=== PATIENT | male | born 1960 | race Caucasian/White ===

== ENCOUNTER 2020-03-21 06:56 | Outpatient (REF) | payer OTHER, SELFPAY | END 2020-03-21 06:57 | disposition home or self-care (01) | LOC: HO.LAB 06:56 | PROVIDERS: Visit Provider Internal Medicine | DX: Z20.828 Contact with and (suspected) exposure to other viral communicable diseases (principal) | CPT/HCPCS: C9803; U0003 ==

== ENCOUNTER 2020-07-11 07:03 | Day surgery (SDC) | payer OTHER, SELFPAY ==
[2020-06-02 13:46] VITALS: BMI 30.4
--- NOTE | 2020-07-08 08:53 | HO.ANESPROP2 ---
Documented by User: Annette Chinchilla 07/08/20 08:54 HPI - Anesthesia Eval Consult details Narrative: 60yo M for Colonoscopy [facility] Past Medical History Medical History (Updated 06/02/20 @ 13:43 by Iveth Palm) Elevated cholesterol History of CVA (cerebrovascular accident) HTN (hypertension) Surgical History Surgical History (Updated 06/02/20 @ 13:23 by Iveth Palm) Hx of colonoscopy Hx of wisdom tooth extraction Social History Social History Smoking Status: Never smoker Use of substances other than those prescribed or required for medical reasons: No Advance Directives: No Advance Directives Information Provided: No Meds Allergies Allergy/AdvReac Type Severity Reaction Status Date / Time No Known Allergies Allergy Verified 06/02/20 13:43 Home Medications Medication Instructions Recorded Confirmed Last Taken Type aspirin [Aspir-81] 81 mg PO DAILY 06/02/20 06/02/20 Unknown History atorvastatin 1 tab PO DAILY 06/02/20 06/02/20 Unknown History losartan 1 tab PO DAILY 06/02/20 06/02/20 Unknown History Exam Exam Date and Time: July 08, 2020 0853 Height,Weight and Vital Signs: Height 5 ft 8 in Weight 90.718 kg Assessment and Plan Assessment Anesthesia Assessment: Chart Reviewed Documented by User: Terra Gomes 07/11/20 07:27 [facility] Past Medical History Medical History (Updated 06/02/20 @ 13:43 by Iveth Palm) Elevated cholesterol History of CVA (cerebrovascular accident) HTN (hypertension) Surgical History Surgical History (Updated 06/02/20 @ 13:23 by Iveth Palm) Hx of colonoscopy Hx of wisdom tooth extraction Social History Social History Smoking Status: Never smoker Use of substances other than those prescribed or required for medical reasons: No Advance Directives: No Advance Directives Information Provided: No Meds Allergies Allergy/AdvReac Type Severity Reaction Status Date / Time No Known Allergies Allergy Verified 06/02/20 13:43 Home Medications Medication Instructions Recorded Confirmed Last Taken Type aspirin [Aspir-81] 81 mg PO DAILY 06/02/20 06/02/20 Unknown History atorvastatin 1 tab PO DAILY 06/02/20 06/02/20 Unknown History losartan 1 tab PO DAILY 06/02/20 06/02/20 Unknown History Exam Airway Mallampati Class: II (Cap top right) TM Dist: >3cm Neck ROM: Full Heart: RrR Lungs: CTa Assessment and Plan Assessment Anesthesia Assessment: Anesthesia Plan Discussed and Chart Reviewed Final Anesthetic Review NPO: Yes ASA Class: II Final Preanesthetic Review: No Changes in Pt Med Stat and Consent Obtained/Reviewed Patient Risk: Intermediate Procedure Risk: Intermediate Anesthetic Plan Anesthetic Plan: MAC: Disposition: Standard PACU
[2020-07-11] MEDS: Lactated Ringers 1,000 ML 100 ML IVCONT (07:43)
[2020-07-11 07:45] VITALS: BP 131/80; PULSE 54; RESP 16; TEMP 36.1; O2SAT 97
[2020-07-11 09:15] VITALS: BP 137/80; PULSE 55; RESP 18; TEMP 36.4; O2SAT 96
--- NOTE | 2020-07-11 09:22 | PM.OP ---
Brief Operative Note Date of Service: 07/11/20 Pre-op diagnosis: Screening Post-op diagnosis: other (Colon polyp) Procedure: Colonoscopy to the cecum and TI with snare polypectomy, placement of Resolution clips x 2, and submucosal ink marking x 2 Surgeon: Matthew West Anesthesia: MAC Estimated blood loss (mL): 0 Pathology: other (A. Colon polyp at 30cm) Condition: stable Disposition: PACU
--- NOTE | 2020-07-11 09:38 | OP_ITS ---
SURGEON: Matthew West MD INDICATIONS: The patient presents for evaluation of colorectal cancer screening. Full consent has been obtained from him for this, including risks of bleeding and perforation. PREOPERATIVE DIAGNOSIS: Colorectal cancer screening. POSTOPERATIVE DIAGNOSIS: PROCEDURE PERFORMED: ESTIMATED BLOOD LOSS: COMPLICATIONS: ANESTHESIA: Monitored anesthesia care. ASSISTANTS: SPECIMENS: POSTOPERATIVE DIAGNOSES: Colorectal cancer screening, colon polyp, diverticulosis and internal hemorrhoids. DESCRIPTION OF PROCEDURE: The patient was placed in the left lateral decubitus position. The digital rectal exam revealed no abnormalities. The Olympus video pediatric colonoscope was entered into the rectum and advanced easily to the cecum. Once in the cecum, I did identify normal-appearing cecal pouch with appendiceal orifice and a normal-appearing ileocecal valve. The terminal ileum was cannulated and appeared normal. The scope was withdrawn back in the colon. The entire cecum and ileocecal valve appeared normal. The scope was slowly withdrawn assessing all mucosal surfaces carefully. Preparation was excellent. At 30 cm, was an approximately 1.5 cm somewhat inflammatory and ulcerated polyp on a relatively long thick stalk. I initially placed 2 resolution clips toward the base of the stalk to help with hemostasis. There was good change of color of the polyp to a dusky color. I then used the hot snare to remove the polyp just above the clip. There was no sign of any bleeding. The polyp itself was retrieved with a retrieval net and taken out of the patient. The scope was readvanced back to the polypectomy site. Both clips were well deployed and there was good hemostasis. There was no sign of any residual polyp nor bleeding. Given the gross appearance of the polyp, I placed a submucosal ink claudette just proximal and just distal to the polypectomy site. Good markings were noted. No other polyps were seen in the colon. There was no colitis nor angiodysplasia. There was a mild amount of sigmoid diverticulosis. In the rectum, scope was retroflexed visualizing small internal hemorrhoids, but no other pathology. The rectal mucosa appeared normal. The scope was straightened out and withdrawn from the patient. He tolerated the procedure well and was returned to the recovery area in stable condition. IMPRESSION: 1. Colon polyp, status post snare polypectomy with placement of 2 resolution clips on the polypectomy site and marking with submucosal ink. 2. Diverticulosis. 3. Internal hemorrhoids. PLAN: The results of the pathology will be checked. If this is only adenomatous, I would then recommend a repeat colonoscopy in 3 years. If there is any worrisome signs such as high-grade dysplasia or certainly carcinoma, we may need to proceed earlier or consider surgical referral depending upon the final pathology report. He was advised to not use any aspirin for 3 more days. This has been discussed with his . PROCEDURES PERFORMED: Colonoscopy to cecum and terminal ileum with snare polypectomy, placement of 2 resolution clips, and marking with submucosal ink. MD MARIPOSA Barber/ANDREINA / [id number]
[2020-07-11 09:42] VITALS: BP 131/95; PULSE 56; RESP 18; TEMP 36.2; O2SAT 97
== END 2020-07-11 09:48 | disposition home or self-care (01) ==
PROVIDERS: PCP Physician Assistant; Visit Provider Internal Medicine
PROC: 0DJD8ZZ Inspection of Lower Intestinal Tract, Via Natural or Artificial Opening Endoscopic (ICD-10-PCS; CPT 45378; principal; 2020-07-11 08:10)
DX: Z12.11 Encounter for screening for malignant neoplasm of colon (principal); K51.40 Inflammatory polyps of colon without complications; K57.30 Diverticulosis of large intestine without perforation or abscess without bleeding; K64.8 Other hemorrhoids; I10 Essential (primary) hypertension; I62.9 Nontraumatic intracranial hemorrhage, unspecified; G83.24 Monoplegia of upper limb affecting left nondominant side; Z79.899 Other long term (current) drug therapy; Z79.82 Long term (current) use of aspirin
CPT/HCPCS: 45385; 45381; 88305

== ENCOUNTER 2024-01-15 12:27 | Outpatient (AMB) | payer OTHER, SELFPAY ==
--- NOTE | 2024-01-15 12:32 | MHC.PC.OV ---
Vital Signs 01/15/24 12:34 01/15/24 13:12 Height 5 ft 7.5 in Weight 212 lb BMI 32.7 BP 146/90 H 140/98 H Blood Pressure Location Rt brachial Rt brachial Position Sitting Sitting Pulse 54 Pulse Source Pulse Oximeter Pulse Oximetry (%) 96 Oxygen Delivery Method Room Air Intake Visit Reasons: PE Intake Note: Pt is here today for his PE Allergies No Known Allergies Allergy (Verified 01/15/24 12:33) Medication List - Last Reconciled 01/15/24 by MARY Pope No Known Home Meds Tobacco use date assessed: 01/15/24 Dental Screening Dental Screen Date: 01/15/24 Did you have a dental visit in the last 12 months?: No Did you have a dental problem in the last 6 months where you did not have access to dental care?: No Was dental information given to patient?: No HPI PE HPI Details New pt is here for a PE. Will order labs. Due for colon screen, will refer to GI. Due for PSA, will order. Denies dribbling with urination, weak stream, and frequent nocturia. Pt follows up with urology. Pt reports hearing loss. Will refer to speech and hearing. Pt's blood pressure is elevated today. Will start losartan 25mg. Will have pt monitor his BP at home and send values via portal. 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 Denies chest pain, shortness of breath, headache, dizziness, and blurred vision. Encouraged pt to restart daily aspirin. Pt is fair skinned with faint macular lesions throughout his face. Will refer to derm. [facility] Medical History (Updated 01/15/24 @ 13:17 by MARY Pope) History of CVA (cerebrovascular accident) Elevated cholesterol HTN (hypertension) Surgical History Hx of wisdom tooth extraction Hx of colonoscopy Social History Housing: House Patient Tobacco Use Status: Former Tobacco user Tobacco use type: Cigar e-Cigarette/Vaping Use: Never Used service: No Current occupational status: employed Cognitive needs: No Hearing needs: No Vision needs: Yes Questionnaire PHQ-9 Over the last 2 weeks, how often have you been bothered by any of the following problems? 1. Little interest or pleasure in doing things: not at all 2. Feeling down, depressed, or hopeless: not at all 3. Trouble falling or staying asleep, or sleeping too much: several days 4. Feeling tired or having little energy: not at all 5. Poor appetite or overeating: not at all 6. Feeling bad about yourself - or that you are a failure or have let yourself or your family down: not at all 7. Trouble concentrating on things, such as reading the newspaper or watching television: not at all 8. Moving or speaking so slowly that other people could have noticed. Or the opposite - being so fidgety or restless that you have been moving around a lot more than usual: not at all 9. Thoughts that you would be better off or of hurting yourself in some way: not at all Total score: 1 Depression Screening Interpretation: Negative Depression Screening Done: Yes 03626 - PHQ-9 Billing: Yes Source: Developed by Drs. Matthew Heaton, Jessica Carolina, Tj Berkowitz and colleagues, with an educational kevin from [employer]. Thrive Questionnaire Date Thrive assessed: 01/15/24 I am a: Patient What is your living situation today?: I have a steady place to live Within the past 12 months, did the food you bought not last and you didn't have the money to get more?: Never true Within the past 12 months, did you worry whether your food would run out before you got money to buy more?: Never true Do you have trouble paying for medicines?: No Do you have trouble getting transportation to medical appointments?: No Do you have trouble paying your heating and electricity bill?: No Do you have trouble taking care of your child, family member or friend?: No Do you have trouble with day-to-day activities such as bathing, preparing meals, shopping, managing finances, etc.?: No Are you interested in more education?: Yes Please select the resources that you would like help with: None Currently or been in a relationship where the following occur: No concerns reported THRIVE Score: 0 AUDIT C Alcohol Use Questionnaire (AUDIT-C) 1. How often do you have a drink containing alcohol?: 2-4 times a month 2. How many drinks containing alcohol do you have on a typical day when you are drinking?: 1 or 2 3. How often do you have six or more drinks on one occasion?: Never Total Score: 2 MARCUS-7 AMB Questionnaire MARCUS-7 Date MARCUS - 7 assessed: 01/15/24 Feeling nervous, anxious, or on edge: 0 = Not at all Not being able to stop or control worryin = Not at all Worrying too much about different things: 0 = Not at all Trouble relaxin = Not at all Being so restless that it is hard to sit still: 0 = Not at all Becoming easily annoyed or irritable: 0 = Not at all Feeling afraid as if something awful might happen: 0 = Not at all Total MARCUS-7 score (0-4 normal; 5-9 mild; 10-14 moderate; 15-21 severe): 0 Source: Developed by Drs. Matthew Heaton, Jessica Carolina, Tj Berkowitz and colleagues, with an educational kevin from [employer]. MARCUS-7 Assessment Billing MARCUS-7 Assessment Tool: MARCUS-7 Assessment 37244 Review of Systems Const Denies chills and Denies fever(s) Eyes Denies blurry vision ENT Denies vertigo, Denies dizziness and Denies sore throat Card Denies chest pain at rest, Denies chest pain with activity, Denies diaphoresis, Denies dyspnea and Denies dyspnea on exertion Resp Denies cough, Denies dyspnea, Denies dyspnea on exertion and Denies wheezing GI Denies abdominal pain, Denies melena, Denies hematochezia, Denies constipation, Denies diarrhea and Denies loose stools Denies hematuria Musc Denies numbness and Denies tingling Skin/Breast Denies lesions Neuro Denies vertigo, Denies dizziness, Denies numbness and Denies tingling Psych Denies anxiety, Denies depression, Denies homicidal ideation, Denies suicidal ideation and Denies other (substance abuse) Aller/Immun Denies wheezing Physical exam (Primary Care) Vital Signs: Last Vital Signs Pulse 54 01/15/24 12:34 BP 140/98 H 01/15/24 13:12 Pulse Ox 96 01/15/24 12:34 Oxygen Delivery Method Room Air 01/15/24 12:34 BMI result Body Mass Index 32.7 Tobacco/Smoking Status: Tobacco use Status Tobacco use date assessed 01/15/24 01/15/24 12:38 Patient Tobacco Use Status Former Tobacco user 01/15/24 12:38 Tobacco use type Cigar 01/15/24 12:38 e-Cigarette/Vaping Use Never Used 01/15/24 12:38 PHQ-9: PHQ-9 Score PHQ-9: Total score 1 01/15/24 13:12 Depression Screening Interpretation: Negative Thrive Assessment: Date of Thrive Assessment Date Thrive assessed 01/15/24 01/15/24 12:38 Currently or been in a relationship where the following occur: No concerns reported Const General: cooperative Nutritional Appearance: well nourished Orientation/consciousness: patient oriented x3 HENMT Head: Yes normal to inspection, Yes normocephalic and Yes atraumatic Ears: TM's normal bilaterally Eyes General: appearance normal, both eyes and all related structures Alignment and Position: alignment normal and position normal Neck Neck: Yes normal visual inspection, Yes no lymphadenopathy and Yes supple Resp Effort & Inspection: normal respiratory effort Auscultation: clear to auscultation bilaterally Cardio Rate: regular rate Rhythm: regular rhythm Heart sounds: S1 normal heart sound present, S2 normal heart sound present and no murmurs GI Palpation (GI): Soft to palpation and nontender Auscultation: normal bowel sounds Male General Exam: Yes normal external exam Penis: normal penis Scrotum: scrotum normal, testes descended bilaterally and no inguinal hernias Testes: no testicular mass Skin Other: fair skinned, faint macular lesions throughout face Rashes: no rashes Neuro General: patient oriented x3, moves all extremities, no focal motor deficits and deep tendon reflexes 2+ bilaterally Romberg Test: Negative Psych Appearance: grossly normal Mental Status: mental status grossly normal Speech and movement: Normal speech and movement present Affect: normal affect Attitude: cooperative Thought process: Normal thought process present Thought content: Normal thought content present Insight: Good insight present (Psych) Judgement: Good judgement present (Psych) Coding Level of Care Code New Pt Prev Care 40-64y(43373) Diagnoses Physical exam Z00.00 Screening for prostate cancer Z12.5 Screening for colon cancer Z12.11 Loss of hearing H91.90 Skin lesions L98.9 HTN (hypertension) I10 Additional Codes MARCUS-7 Assessment Billing - MARCUS-7 Assessment Tool: MARCUS-7 Assessment 64835 ([id number]) Assessment & Plan Assessment & Plan (1) Physical exam: Code(s): Z00.00 - Encounter for general adult medical examination without abnormal findings Category: Medical Plan: labs entered (2) Screening for prostate cancer: Code(s): Z12.5 - Encounter for screening for malignant neoplasm of prostate Category: Medical Plan: PSA ordered (3) Screening for colon cancer: Code(s): Z12.11 - Encounter for screening for malignant neoplasm of colon Category: Medical Plan: referred to GI (4) Loss of hearing: Code(s): H91.90 - Unspecified hearing loss, unspecified ear Category: Medical Plan: Referred to speech and hearing (5) Skin lesions: Code(s): L98.9 - Disorder of the skin and subcutaneous tissue, unspecified Category: Medical Plan: Referred to derm (6) HTN (hypertension): Code(s): I10 - Essential (primary) hypertension Category: Medical Plan: lab orders entered, starting losartan, pt will monitor his BP at home and send readings via portal Plan The patient agreed to the use of a medical coding specialist for this encounter. Scribed for XIMENA Mckeon-BC by Inez Shah medical coding specialist, on 01/15/2024 at 12:45 EST. Orders: Orders UA CC w/rflx Micro + Cult Today Z00.00 - Encounter for general adult medical examination without abnormal findings Lipid Panel Today Z00.00 - Encounter for general adult medical examination without abnormal findings Prostate Specific Antigen Scr Today Z12.5 - Encounter for screening for malignant neoplasm of prostate Complete Blood Count Auto Diff Today Z00.00 - Encounter for general adult medical examination without abnormal findings Comprehensive [place]. Panel Fast Today Z00.00 - Encounter for general adult medical examination without abnormal findings TSH reflex Free T4 Today Z00.00 - Encounter for general adult medical examination without abnormal findings Referrals Speech and Hearing Referral H91.90 - Unspecified hearing loss, unspecified ear, Z00.00 - Encounter for general adult medical examination without abnormal findings Dermatology Referral L98.9 - Disorder of the skin and subcutaneous tissue, unspecified Gastroenterology Referral Z12.11 - Encounter for screening for malignant neoplasm of colon Medications: New losartan 25 mg PO DAILY 30 tabs 2RF 30 days
[2024-01-15 12:34] VITALS: BP 146/90; PULSE 54; O2SAT 96; BMI 32.7
[2024-01-15 13:12] VITALS: BP 140/98
== END 2024-01-15 13:18 | disposition home or self-care (01) ==
PROVIDERS: PCP Physician Assistant; Visit Provider Nurse Practitioner Family
DX: Z00.00 Encounter for general adult medical examination without abnormal findings (principal); Z12.5 Encounter for screening for malignant neoplasm of prostate; Z12.11 Encounter for screening for malignant neoplasm of colon; H91.90 Unspecified hearing loss, unspecified ear; L98.9 Disorder of the skin and subcutaneous tissue, unspecified; I10 Essential (primary) hypertension

== ENCOUNTER → 2024-01-15 12:27 | Outpatient (BNVA) | payer OTHER, SELFPAY | PROVIDERS: PCP Physician Assistant; Visit Provider Nurse Practitioner Family | DX: Z00.01 Encounter for general adult medical examination with abnormal findings (principal); H91.90 Unspecified hearing loss, unspecified ear; L98.9 Disorder of the skin and subcutaneous tissue, unspecified; I10 Essential (primary) hypertension | CPT/HCPCS: 96127 ==

== ENCOUNTER 2024-01-28 07:22 | Outpatient (REF) | payer OTHER, SELFPAY ==
[2024-01-28 07:47] LABS: MANUAL DIFF FLAG NO
[2024-01-28 08:21] LABS: Basophils Absolute Auto 0.1 X10*3/uL (0.0-0.2); Eosinophils Absolute Auto 0.5 X10*3/uL (0.0-0.4); Eosinophils Percent Auto 8.2 % (0-4); Hematocrit 43.8 % (42.0-52.0); Hemoglobin 14.8 g/dl (14.0-18.0); Imm Gran Abs Auto 0.02 X10*3/uL (0.00-0.03); Imm Gran Pct Auto 0.3 % (0.0-0.4); Lymphocytes Absolute Auto 2.1 X10*3/uL (1.2-4.9); Lymphocytes Percent Auto 33.8 % (20-40); Mean Corpuscular HGB Conc 33.8 g/dl (31.0-36.0); Mean Corpuscular Hemoglobin 29.8 pg (27.0-33.0); Mean Corpuscular Volume 88.1 fL (80.0-98.0); Mean Platelet Volume 9.2 fL (9.4-12.4); Monocytes Absolute Auto 0.6 X10*3/uL (0.1-1.2); Monocytes Percent Auto 9.9 % (2-11); Neutrophils Absolute Auto 2.9 x10*3/uL (2.0-8.3); Neutrophils Percent Auto 46.8 % (45-73); Platelet Count 233 X10*3/uL (160-400); Red Blood Count 4.97 X10*6/uL (4.60-5.80); Red Cell Distribution Width 12.9 % (11.0-16.0); White Blood Count 6.1 X10*3/uL (4.8-10.8)
[2024-01-28 08:37] LABS: Appearance Urine Clear; Color Urine Dark Yellow; Glucose Urine UA Negative (Negative); Leukocyte Esterase Urine Trace (Negative); Nitrite Urine Negative (Negative); UMIC TRIGGER UACC YES; Urine Blood Negative (Negative); Urine Ketones Negative (Negative); Urine Protein Negative (Neg-Trace)
[2024-01-28 08:47] LABS: Bacteria Urine None Seen (None Seen); Hyaline Casts Urine 0-2 /LPF (0-2); RBC Urine 0-2 /HPF (0-2); Squamous Epithelial Cell Urine 0-2 /HPF (0-2); WBC Urine 0-5 /HPF (0-5)
[2024-01-28 09:08] LABS: Alanine Aminotransferase 86 U/L (0-40); Albumin Level 4.7 g/dL (3.5-5.0); Alkaline Phosphatase 78 U/L (39-117); Anion Gap 11 (12-20); Aspartate Amino Transferase 58 U/L (5-37); Bilirubin Total 0.6 mg/dL (0.0-1.0); Blood Urea Nitrogen 14 mg/dL (9-16); Calcium 10.2 mg/dL (8.4-10.2); Carbon Dioxide 29 mmol/L (22-29); Chloride 103 mmol/L (96-108); Cholesterol 283 mg/dL (<200); Estimated Glomerular Filt Rate > 60; Glucose Fasting 132 mg/dL (60-99); HDL Cholesterol 50 mg/dL (>40); LDL Cholesterol Calculated 173 mg/dL (<100); Sodium 139 mmol/L (135-145); Total Protein 7.4 g/dL (6.5-8.0); Triglycerides 303 mg/dL (<150)
[2024-01-28 09:27] LABS: TSH reflex Free T4 2.87 uIU/mL (0.32-4.0)
[2024-01-28 09:31] LABS: Prostate Specific Antigen Scr 6.27 ng/mL (<0.05-4.0)
== END 2024-01-28 07:23 | disposition home or self-care (01) ==
LOC: HO.LAB 07:22
PROVIDERS: PCP Nurse Practitioner Family; Visit Provider Nurse Practitioner Family
DX: Z00.00 Encounter for general adult medical examination without abnormal findings (principal); Z12.5 Encounter for screening for malignant neoplasm of prostate; R73.01 Impaired fasting glucose; R74.8 Abnormal levels of other serum enzymes
CPT/HCPCS: 36415; 80053; 80061; 81001; 84153; 84443; 85025

== ENCOUNTER 2024-02-04 14:05 | Outpatient (REF) | payer OTHER, SELFPAY ==
--- NOTE | 2024-02-04 16:49 | MHC.AU.HA1 ---
Hearing Aid Evaluation Date of Visit: 02/04/24 Historical Information: Description of Hearing: Within normal to borderline 2kHz sloping to moderate sensorineural hearing loss, bilateral. Current personal amplification information, if applicable: none Summary: Seen for evaluation. Reports frustration with hearing loss. 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 Discussed amplification options. Recommended RITE style hearing aid. Reviewed costs and performance levels. Juvenal selected rechargeable. Would like to connect with his smartphone. Hearing Aid Prescription: Based on the individual?s shared listening needs, communication environments, dexterity, desire for connectivity, and personal preferences, the following prescription for amplification has been made: Right ear: Make, Model, Color: Phonak Audeo I70 R champagne Battery Size: Rechargeable Lab Aid/Slim Tube: 2 M Type of Earmold/Dome/CShell/SlimTip: small open Left ear: Make, Model, Color: Phonak Audeo I 70 R champagne Battery Size: Rechargeable Lab Aid/Slim Tube: 2M Type of Earmold/Dome/CShell/SlimTip: sm open Plan of Care: Patient wishes to purchase hearing aids as prescribed Action Taken/Action Needed: Medical Clearance to be requested from PCP/ENT Hearing Instrument Fitting to be scheduled when materials arrive Primary Diagnosis: H90.3 Bilateral Sensorineural Hearing Loss Signature: Provider: Edson Yu, [facility]
== END 2024-02-04 14:06 | disposition home or self-care (01) ==
LOC: HO.SH 14:05
PROVIDERS: Visit Provider Nurse Practitioner Family
DX: Z01.118 Encounter for examination of ears and hearing with other abnormal findings (principal); H90.3 Sensorineural hearing loss, bilateral
CPT/HCPCS: 92557; 92567

== ENCOUNTER 2024-02-13 09:46 | Outpatient (REF) | payer OTHER, SELFPAY ==
--- NOTE | ~2024-02-13 | US_ITS ---
EXAMINATION: US ABDOMEN LIMITED WITH LIVER ELASTOGRAPHY CLINICAL INFORMATION: Abnormal levels of other serum enzymes COMPARISON: None available. TECHNIQUE: Real-time imaging of the abdominal viscera. Noninvasive ultrasound liver fibrosis assessment is performed using Nixon ElastPQ point quantification shear wave elastography (pSWE) with a 5 MHz transducer. Multiple elastography samples are obtained. FINDINGS: PANCREAS: The visualized pancreatic pancreas is normal. LIVER: The liver demonstrates normal size and contour with increased echogenicity. No intrahepatic biliary duct dilatation. There is a right liver well-circumscribed hypoechoic avascular lesion which measures 1.2 x 1 x 1.3 cm. The right lobe measures 18.4 cm in length. The left lobe measures 11.7 cm in length. Shear wave elastography provides a median stiffness of 1.4 m/s (reference: normal median stiffness is 0.81 - 1.22 m/s). The IQR/median stiffness to assess sampling precision is 0.18 (reference: optimal IQR/median stiffness is under 0.3). GALLBLADDER: The gallbladder is physiologically distended without evidence of stones, sludge, polyps, wall thickening. Small volume pericholecystic fluid incidentally noted. COMMON BILE DUCT: Normal in caliber measuring 0.3 cm in diameter. RIGHT KIDNEY: No hydronephrosis. No renal calculi or focal parenchymal lesions. The kidney measures 10.5 cm in maximum dimension. FREE FLUID: None. US/US abdomen bueno w elastography IMPRESSION: 1. There is a right liver well-circumscribed hypoechoic avascular 1.3 cm lesion which is nonspecific. If clinically warranted, consider dynamic liver MRI for further assessment. 2. Elastography: Liver elastography measurements are consistent with a minimal risk for clinically significant liver fibrosis (METAVIR Stage F0-F1). Electronically signed by: Rosalia Real DO 02/14/2024 03:52 PM [facility]
== END 2024-02-13 09:47 | disposition home or self-care (01) ==
LOC: HO.US 09:46
PROVIDERS: PCP Nurse Practitioner Family; Visit Provider Nurse Practitioner Family
DX: R74.8 Abnormal levels of other serum enzymes (principal)
CPT/HCPCS: 76705; 76981

== ENCOUNTER 2024-02-27 13:42 | Outpatient (REF) | payer OTHER, SELFPAY ==
[2024-02-27] MEDS: gadobutroL 10 ML VIAL IVPUSH (15:09)
== END 2024-02-27 13:43 | disposition home or self-care (01) ==
LOC: HO.MRI 13:42
PROVIDERS: PCP Nurse Practitioner Family; Visit Provider Nurse Practitioner Family
DX: K76.9 Liver disease, unspecified (principal)
CPT/HCPCS: 74183; A9585

== ENCOUNTER 2024-02-28 08:58 | Outpatient (REF) | payer SELFPAY ==
--- NOTE | 2024-02-28 09:59 | MHC.AU.HA2 ---
Hearing Instrument Fitting- Adult- Binaural Date of Visit: 02/28/24 Hearing Instruments Dispensed: Right Ear: Make, Model, Color, Serial Number: Phonak Nikolayeo I70 R senthil [id number] Interventional Physiatrist Repair Warranty: 03/13/2027 Interventional Physiatrist Loss and Damage Warranty: 03/13/2027 [facility] Service Plan: [employer] [facility] [place] employee Battery Size: Rechargeable Cafe Operator/Slim Tube: 2 M Earmold/Dome/CShell/SlimTip: small open Type of Wax Guard: Cerustop Left Ear: Make, Model, Color, Serial Number: Phonak Audeo I 70 R senthil S#[id number] Interventional Physiatrist Repair Warranty: 03/13/2027 Interventional Physiatrist Loss and Damage Warranty: 03/13/2027 [facility] Service Plan: [employer] [facility] [place] employee Battery Size: Rechargeable Cafe Operator/Slim Tube: 2M Earmold/Dome/CShell/SlimTip: small open Type of Wax Guard: Cerustop Accessories/Assistive Technology: Phonak director power SHERMAN S#[id number] Summary of Fitting: Fit with and oriented to binaural Phonak Infinio 70 R HAs. Verified to L adult 5 targets. VC disabled at this time. 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 Reviewed charging, maintenance, precautions. Practiced insertion and removal. Not paired to phone at this time. Recommended installing Phonak tawana to pair aids at follow up. Counseled on adjustment to amplification. Recommendations: Recommendations: Hearing instrument care and maintenance were discussed and practiced. A hearing instrument follow-up was scheduled. Diagnosis Code(s): Primary Diagnosis: H90.3 Bilateral Sensorineural Hearing Loss Signature: Provider: Edson Yu, [facility]
== END 2024-02-28 08:59 | disposition home or self-care (01) ==
LOC: HO.HAP 08:58
PROVIDERS: Visit Provider Nurse Practitioner Family
DX: Z46.1 Encounter for fitting and adjustment of hearing aid (principal); H90.3 Sensorineural hearing loss, bilateral
CPT/HCPCS: V5261; V5299

== ENCOUNTER 2024-03-18 11:00 | Day surgery (SDC) | payer SELFPAY ==
[2024-03-16 13:23] VITALS: BMI 32.2
[2024-03-16 13:40] VITALS: BMI 32.2
--- NOTE | 2024-03-17 10:29 | P.CONAN_ITS ---
Documented by User: Annette Chinchilla NP 03/17/24 10:30 HPI - Anesthesia Eval Consult details Narrative: 64yo M for Upper Endoscopy with Balloon Dilitation PMFSH Active Problems Active Problems: All Active Problems Liver lesion (Acute) Dysphagia (Acute) Chronic GERD (Acute) Elevated fasting blood sugar (Acute) Elevated liver enzymes (Acute) Skin lesions (Acute) Loss of hearing (Acute) Screening for colon cancer (Acute) Screening for prostate cancer (Acute) Physical exam (Acute) HTN (hypertension) (Acute) Past Medical History Medical History Takes dietary supplements Hearing loss GERD (gastroesophageal reflux disease) History of CVA (cerebrovascular accident) Elevated cholesterol HTN (hypertension) Surgical History Surgical History Hx of wisdom tooth extraction Hx of colonoscopy Social History Social History (Updated 03/16/24 @ 13:23 by Lynette Barber RN) Household Members: Spouse Housing: House Are you a primary hearing healthcare practitioner to a significant other at home: No Do you presently have visiting nurse or other home services: No Patient Tobacco Use Status: Former Tobacco user Tobacco use type: Cigar e-Cigarette/Vaping Use: Never Used service: No Current occupational status: employed Cognitive needs: No Hearing needs: No Vision needs: Yes Meds Allergies Allergy/AdvReac Type Severity Reaction Status Date / Time No Known Allergies Allergy Verified 01/15/24 12:33 Home Medications ?Medication ?Instructions ?Recorded ?Confirmed ?Last Taken ?Type psyllium husk 0.4 gram capsule 0.8 g PO DAILY 03/16/24 03/16/24 Unknown History Baby Aspirin 81 mg PO DAILY 03/17/24 03/17/24 Unknown History atorvastatin 80 mg PO DAILY 03/17/24 03/17/24 Unknown History losartan 25 mg PO DAILY 03/17/24 03/17/24 Unknown History Exam Height,Weight and Vital Signs: Height 5 ft 8 in Weight 96.162 kg Assessment and Plan Assessment Anesthesia Assessment: Chart Reviewed Documented by User: Bre Mcdonough MD 03/18/24 10:56 PMFSH Past Medical History Medical History Takes dietary supplements Hearing loss GERD (gastroesophageal reflux disease) History of CVA (cerebrovascular accident) Elevated cholesterol HTN (hypertension) Family History Family history of problems with anesthesia: No Surgical History Surgical History Hx of wisdom tooth extraction Hx of colonoscopy History of Problems with Anesthesia: No Social History Social History (Updated 03/16/24 @ 13:23 by Lynette Barber RN) Household Members: Spouse Housing: House Are you a primary hearing healthcare practitioner to a significant other at home: No Do you presently have visiting nurse or other home services: No Patient Tobacco Use Status: Former Tobacco user Tobacco use type: Cigar e-Cigarette/Vaping Use: Never Used service: No Current occupational status: employed Cognitive needs: No Hearing needs: No Vision needs: Yes Meds Allergies Allergy/AdvReac Type Severity Reaction Status Date / Time No Known Allergies Allergy Verified 01/15/24 12:33 Home Medications ?Medication ?Instructions ?Recorded ?Confirmed ?Last Taken ?Type psyllium husk 0.4 gram capsule 0.8 g PO DAILY 03/16/24 03/16/24 Unknown History Baby Aspirin 81 mg PO DAILY 03/17/24 03/17/24 Unknown History atorvastatin 80 mg PO DAILY 03/17/24 03/17/24 Unknown History losartan 25 mg PO DAILY 03/17/24 03/17/24 Unknown History Exam Airway Mallampati Class: II TM Dist: >3cm Neck ROM: Full Assessment and Plan Assessment Anesthesia Assessment: Anesthesia Plan Discussed Final Anesthetic Review Family History of Problems with Anesthesia: No History of Problems with Anesthesia: No NPO: Yes ASA Class: II Final Preanesthetic Review: No Changes in Pt Med Stat, Meds/Allgs Chart Reviewed, Consent Obtained/Reviewed, Anes Risks/Benef Reviewed and DNR Form (If Appl.) Patient Risk: Low Procedure Risk: Low Anesthetic Plan Anesthetic Plan: TIVA Disposition: Standard PACU
[2024-03-18 11:10] VITALS: BMI 32.3
[2024-03-18] MEDS: Lactated Ringers 1,000 ML 100 ML IVCONT (11:37)
[2024-03-18 11:39] VITALS: BP 160/96; PULSE 58; RESP 16; TEMP 35.8; O2SAT 97
[2024-03-18 12:55] VITALS: BP 122/79; PULSE 68; RESP 15; TEMP 36.3; O2SAT 95
--- NOTE | 2024-03-18 12:58 | PM.OP ---
Brief Operative Note Date of Service: 03/18/24 Pre-op diagnosis: Dyspagia Post-op diagnosis: other (Hiatal hernia, GERD) Procedure: EGD with biopsies Surgeon: Matthew West MD Anesthesia: MAC Was an Supervisor Spinning used for this Procedure?: No Estimated blood loss (mL): 2.0 Pathology: other (A. EG Junction at 37cm B. Esophagus at 20-25cm) Condition: stable Disposition: PACU
[2024-03-18 13:10] VITALS: BP 124/78; PULSE 70; RESP 18; TEMP 36.3; O2SAT 95
--- NOTE | 2024-03-18 13:14 | OP_ITS ---
DATE OF SERVICE: 03/18/2024 SURGEON: Matthew West MD INDICATIONS: The patient presents for evaluation of a sense of dysphagia and previous history of reflux. Full consent has been obtained from him for this, including risks of bleeding and perforation. PREOPERATIVE DIAGNOSIS: POSTOPERATIVE DIAGNOSIS: PROCEDURE PERFORMED: Esophagogastroduodenoscopy with biopsies. ESTIMATED BLOOD LOSS: COMPLICATIONS: ANESTHESIA: Monitored anesthesia care. ASSISTANTS: SPECIMENS: PREOPERATIVE DIAGNOSES: Sense of dysphagia and previous history of reflux. POSTOPERATIVE DIAGNOSES: Sense of dysphagia and previous history of reflux, hiatal hernia, rule out Hill esophagus, rule out eosinophilic esophagitis. DESCRIPTION OF PROCEDURE: The patient was placed in the left lateral decubitus position. The Olympus video gastroscope was passed in the posterior oropharynx and upper esophagus under direct vision. There was no sign of any proximal esophageal rings nor webs. The scope easily was advanced to the gastroesophageal junction at 37 cm. This area was notable for some irregularity and small, less than 1 cm, areas of possible Hill mucosa. There was no sign of any esophageal ring, stricture, nor esophagitis. There was a small hiatal hernia. The scope was advanced to the pylorus, and the duodenum was cannulated to the descending portion. The duodenum including the bulb appeared normal without mass or ulceration. The scope was withdrawn back into the stomach. The gastric antrum and body appeared normal with good peristalsis. Scope was retroflexed visualizing the proximal stomach very carefully, which appeared normal, without any sign of mass or ulceration. The scope was straightened and withdrawn back to the esophagus. With insufflation of air, there was no evidence of any esophageal stricture nor ring. I did obtain multiple biopsies at the EG junction at 37 cm to inspect for Hill mucosa. I did not perform balloon dilation given the findings. The scope was withdrawn through the remainder of the esophagus. There was no sign of any esophageal stricture nor rings. I did obtain multiple biopsies between 20 and 25 cm to rule out eosinophilic esophagitis. Just beneath the upper esophageal sphincter was a patch of gastric heterotopia which was not biopsied. The scope was withdrawn from the patient. He tolerated the procedure well and was returned to the recovery area in stable condition. IMPRESSION: 1. Hiatal hernia, gastroesophageal reflux, rule out Hill esophagus. 2. Rule out eosinophilic esophagitis. PLAN: The results of the biopsies will be checked. At this point, he is asymptomatic in regard to any reflux symptoms. He does have a sense of dysphagia, but denies any actual symptoms of food becoming stuck. At this point, we can observe things. If he has worsening symptoms, I think the next step would be to put him on a trial of a PPI to see if by suppressing any silent acid reflux might help him feel better in this regard. However, at this point, I would observe him. If there is evidence of Hill esophagus without dysplasia, I would recommend a repeat upper endoscopy in 3 years. This has been discussed with his . MD MARIPOSA Barber/ANDREINA / [phone]
--- OUTSIDE RECORDS SUMMARY | 2024-03-19 01:21 | XMS_ITS ---
Author Organization [facility] Address [address] [place] [address] Care Team Providers Care Director Of Trauma Name Role Phone LEOAN GALEANO Primary Care Provider Matthew Barillas [phone] REASON FOR VISIT Patient presents today for dysphagia Encounters Encounter Location Date Provider Diagnosis [facility] [address] [place] [address] 12/25/2023 Matthew West PLAN OF TREATMENT No Information
--- OUTSIDE RECORDS SUMMARY | 2024-03-19 01:21 | XMS_ITS ---
Author Organization [facility] Address [address] [place] [address] Care Team Providers Care Jewel Hole Finish Opener Name Role Phone LEONA GALEANO Primary Care Provider Matthew Barillas [phone] REASON FOR VISIT gerd,dysphagia Encounters Encounter Location Date Provider Diagnosis [facility] [place] Outpatient [address] [place], [place] [id number] 03/18/2024 Matthew West PLAN OF TREATMENT No Information
--- OUTSIDE RECORDS SUMMARY | 2024-03-19 01:21 | XMS_ITS ---
Author Organization [facility] Address [address] [place] [address] Care Team Providers Care Tube Station Attendant Name Role Phone LEONA GALEANO Primary Care Provider Matthew Barillas Unavailable [phone] ALLERGIES No Known Allergies REASON FOR VISIT Patient presents today for dysphagia SOCIAL HISTORY Tobacco Use: Social History Observation Description Date Details (start date - stop date) Never Smoker NA - NA Sex Assigned At : Social History Observation Description Sex Assigned At Unknown Tobacco Use/Smoking Question Answer Notes Patient is a nonsmoker Alcohol Screen Question Answer Notes Did you have a drink contain ing alcohol in the past year? Yes How often did you have a dri nk containing alcohol in the past year? 2 to 3 times a week (3 points) How many drinks did you have on a typical day when you were drinking in the past year? 1 or 2 drinks (0 point) How often did you have 6 or more drinks on one occasion in the past year? Never (0 point) Points 3 Interpretation Negative PROBLEMS Problem Type ICD Code Onset Dates Problem Status W/U Status Risk SNOMED Code Notes Problem Chronic GERD (K21.9) Active confirmed Gastroesophagea l reflux disease (disorder) (749650670) Problem Dysphagia (R13.10) Active confirmed Dysphagia (77803589) VITAL SIGNS BMI 32.23 kg/m2 01/17/2024 Blood pressure systolic 00 mm Hg 01/17/20 24 Blood pressure diastolic 00 mm Hg 024 Height 68 in 01/17/2024 Weight 212 lbs 01/17/2024 Encounters Encounter Location Date Provider Diagnosis [facility] [address] [place] [address] 01/17/2024 Matthew West Chronic GERD K21.9 and Dysphagia R13.10 ASSESSMENTS Encounter Date Diagnosis Assessment Notes Treatment Notes Treatment Clinical Notes 01/17/2024 Chronic GERD (ICD-10 - K21.9) 01/17/2024 Dysphagia (ICD-10 - R13.10) PLAN OF TREATMENT Future Test Test Name Order Date UPPER GI ENDOSCOPY BALLOOON DILATION OF ESOPH 01/17/2024 Next Appt Details Follow Up: prn, Reason: Progress Notes * Examination Category Sub-Category Detail Notes General Examination GENERAL APPEARANCE: pleasant , well nourished, well developed, in no acute distress HEAD: EYES: sclera non-icteric EARS: NOSE: THROAT: NECK/THYROID: no cervical lymphade nopathy, neck supple HEART: S1, S2 normal CHEST: LUNGS: clear to auscultatio n bilaterally ABDOMEN: normal bowel sounds, no guarding or rigidity, no guarding or rigidity, no masses palpable, soft, nontender, nondistended NEUROLOGIC: alert and oriented SKIN: nonjaundiced, no spi lola angiomata EXTREMITIES: no edema PERIPHERAL PULSES: BACK: BREASTS: MUSCULOSKELETAL: MALE GENITOURINARY: LYMPH NODES: RECTAL EXAM: FEMALE GENITOURINARY: ORAL CAVITY: mucosa moist
--- OUTSIDE RECORDS SUMMARY | 2024-03-19 01:22 | XMS_ITS | Patient Health Record ---
Author Organization [facility] Address [address] [place] [address] Care Team Providers Care Leathersmith Name Role Phone LENOA GALEANO Primary Care Provider Matthew Barillas Unavailable [phone] ALLERGIES No Known Allergies REASON FOR REFERRAL No Information IMMUNIZATIONS Vaccine Route Administration Date Status Comme nts Influenza Unknown 05/26/2020 Refused SOCIAL HISTORY Tobacco Use: Social History Observation [...] W/U Status Risk SNOMED Code Notes Problem Encounter for screening for malignant neoplasm of colon (Z12.11) Active confirmed Screening for malignant neoplasm of colon (675484414) Problem Preprocedural examination (Z01.818) Active confirmed Preprocedural examination (383540924736964) Problem Chronic GERD (K21.9) Active confirmed Gastroesophagea l reflux disease (disorder) (071593961) Problem Dysphagia (R13.10) Active confirmed Dysphagia (77770422) VITAL SIGNS Blood pressure diastolic 00 mm Hg 01/17/2024 Height 68 in 01/17/2024 Blood pressure systolic 00 mm Hg 01/17/2024 Weight 212 lbs 01/17/2024 BMI 32.23 kg/m2 01/17/2024 Encounters Encounter Location Date Provider Diagnosis [facility] [address] [place], [place] [phone] 03/18/2024 Matthew West [facility] [address] [place] [address] 12/25/2023 Matthew West [facility] [address] [place] [address] 01/17/2024 Matthew West Chronic GERD K21.9 and Dysphagia R13.10 [facility] [address] [place] [address] 12/25/2023 Matthew West ASSESSMENTS Encounter Date Diagnosis Assessment Notes Treatment Notes Treatment Clinical Notes 01/17/2024 Dysphagia (ICD-10 - R13.10) 01/17/2024 Chronic GERD (ICD-10 - K21.9) PLAN OF TREATMENT Future Test Test Name Order Date COLONOSCOPY 05/26/2020 UPPER GI ENDOSCOPY BALLOOON DILATION OF ESOPH 01/17/2024 Insurance Providers Payer Name Payer Address Payer Phone Subscriber Number Group Number Insured Name Patient Relationship to Insured Coverage Start Date Coverage End Date [employer] [address] [address] [place] [address] [id number] GEMINI DIAZ Self - patient is the insured MEDICAL (GENERAL) HISTORY Medical History History ICD Code 2019 Minor CVA--a little weakness in the left arm Hypertension Colonoscopy in 09/2010 in [place]--morton d hyperplastic polyps removed Hyperlipidemia Denies [place],DM,Lung disease,renal disease Colonoscopy 07/2020 with an inflammatory nonadenomatous polyp GERD-better on an OTC Balance 7 Surgical History Surgery Date(Month/Year) wisdom teeth extraction
== END 2024-03-18 13:43 | disposition home or self-care (01) ==
PROVIDERS: PCP Nurse Practitioner Family; Visit Provider Internal Medicine
PROC: (CPT 43239; principal; 2024-03-18 12:20)
DX: R13.10 Dysphagia, unspecified (principal); K21.9 Gastro-esophageal reflux disease without esophagitis; K44.9 Diaphragmatic hernia without obstruction or gangrene
CPT/HCPCS: 43239; 88305; 88313; J2003; J2704

== ENCOUNTER 2024-03-20 08:33 | Outpatient (REF) | payer SELFPAY ==
--- OUTSIDE RECORDS SUMMARY | 2024-03-20 08:41 | XMS_ITS ---
Author Organization [facility] Address [address] [place] [address] Care Team Providers Care Shift Stacker Name Role Phone LEONA GALEANO Primary Care Provider Matthew Barillas Unavailable [phone] ALLERGIES No Known Allergies REASON FOR VISIT [...] Active confirmed Gastroesophagea l reflux disease (disorder) (665980614) Problem Dysphagia (R13.10) Active confirmed Dysphagia (28718044) VITAL SIGNS BMI 32.23 kg/m2 01/17/2024 Blood pressure systolic 00 mm Hg 01/17/20 24 Blood pressure diastolic 00 mm Hg 024 Height 68 in 01/17/2024 Weight 212 lbs 01/17/2024 Encounters Encounter Location Date Provider Diagnosis [facility] [address] [place] [address] 01/17/2024 Matthew West Chronic GERD K21.9 and [...]
--- OUTSIDE RECORDS SUMMARY | 2024-03-20 08:41 | XMS_ITS ---
Author Organization [facility] Address [address] [place] [address] Care Team Providers Care Workday Consultant Name Role Phone LEONA GALEANO Primary Care Provider Matthew Barillas [phone] REASON FOR VISIT Patient presents today for dysphagia Encounters Encounter Location Date Provider Diagnosis [facility] [address] [place] [address] 12/25/2023 Matthew West PLAN OF TREATMENT No Information
--- OUTSIDE RECORDS SUMMARY | 2024-03-20 08:41 | XMS_ITS | Patient Health Record ---
Author Organization [facility] Address [address] [place] [address] Care Team Providers Care Fixture Maker Name Role Phone LEONA GALEANO Primary Care Provider Matthew Barillas Unavailable [phone] ALLERGIES No Known Allergies REASON FOR REFERRAL [...] confirmed Screening for malignant neoplasm of colon (843653456) Problem Preprocedural examination (Z01.818) Active confirmed Preprocedural examination (915005012494421) Problem Chronic GERD (K21.9) Active confirmed Gastroesophagea l reflux disease (disorder) (018323899) Problem Dysphagia (R13.10) Active confirmed Dysphagia (71090915) VITAL SIGNS Blood pressure diastolic 00 mm Hg 01/17/2024 Height 68 in 01/17/2024 Blood pressure systolic 00 mm Hg 01/17/2024 Weight 212 lbs 01/17/2024 BMI 32.23 kg/m2 01/17/2024 Encounters Encounter Location Date Provider Diagnosis [facility] [place] [address] [place] [phone] 03/18/2024 Matthew West [facility] [address] [place] [address] 12/25/2023 Matthew West [facility] [address] [place] [address] 01/17/2024 Matthew West Chronic GERD K21.9 and Dysphagia R13.10 [facility] [address] [place] [address] 12/25/2023 Matthew West ASSESSMENTS Encounter Date Diagnosis [...] [employer] [address] [address] [place] [address] [id number] 1 GEMINI DIAZ Self - patient is the insured MEDICAL (GENERAL) HISTORY Medical History History ICD Code 2019 Minor CVA--a little weakness in the left arm Hypertension Colonoscopy in 09/2010 in [place]--morton d hyperplastic polyps removed Hyperlipidemia Denies [place],DM,Lung disease,renal disease Colonoscopy 07/2020 with an inflammatory nonadenomatous polyp GERD-better on an OTC Balance 7 Surgical History Surgery Date(Month/Year) wisdom teeth extraction
--- OUTSIDE RECORDS SUMMARY | 2024-03-20 08:41 | XMS_ITS ---
Author Organization [facility] Address [address] [place] [address] Care Team Providers Care Accounting Technician Name Role Phone LEONA GALEANO Primary Care Provider Matthew Barillas [phone] REASON FOR VISIT gerd,dysphagia Encounters Encounter Location Date Provider Diagnosis [facility] [place] Outpatient [address] [place], [place] [phone] 03/18/2024 Matthew West PLAN OF TREATMENT No Information
--- NOTE | 2024-03-20 08:51 | MHC.AU.HA3 ---
Hearing Instrument Follow-Up- Binaural Date of Visit: 03/20/24 Right Ear: Model Izaiah, Color, Serial Number: Derick Rodriguez [id number] [place] G[employer]a#[id number] Buckle Sewer Machine Repair Warranty: 03/13/2027 Buckle Sewer Machine Loss and Damage Warranty: 03/13/2027 [facility] Service Plan: [employer] [facility] employee Battery Size: Rechargeable Enamel Machine Operator/Slim Tube: 2 M Earmold/Dome/CShell/SlimTip:small open Type of Wax Guard: Cerustop Dispensed By: [facility] Date of Fittin02/28/2024 Left Ear: Model Izaiah, Color, Serial Number: Derick Rodriguez I [address] [place] [employer]a#[id number] Buckle Sewer Machine Repair Warranty: 03/13/2027 Buckle Sewer Machine Loss and Damage Warranty: 03/13/2027 [facility] Service Plan: [employer] [facility] employee Battery Size: Rechargeable Enamel Machine Operator/Slim Tube: 2M Earmold/Dome/CShell/SlimTip: sm open Type of Wax Guard: Cerustop Dispensed By: [facility] Date of Fittin02/28/24 Follow-Up Summary: Seen for follow up. Juvenal reports great satisfaction with the hearing aids. Notes he was surprised at how much he had been missing. Reports he hooked them up to his phone on his own and has not been having any problems. No questions or concerns at this time. Recommendations: Recommendations: Hearing instrument follow-up or maintenance as needed. Diagnosis Code(s): Primary Diagnosis: H90.3 Bilateral Sensorineural Hearing Loss Signature: Provider: Edson Yu, [facility]
== END 2024-03-20 08:34 | disposition home or self-care (01) ==
LOC: HO.HAP 08:33
PROVIDERS: Visit Provider Nurse Practitioner Family
DX: Z13.89 Encounter for screening for other disorder (principal)

== ENCOUNTER 2024-07-13 08:23 | Outpatient (AMB) | payer OTHER, SELFPAY ==
--- NOTE | 2024-07-13 08:17 | MHC.PC.OV ---
Intake Visit Reasons: Pre op, cataracts - no labs or ekg needed Allergies No Known Allergies Allergy (Verified 01/15/24 12:33) Tobacco use date assessed: 01/15/24 Dental Screening Dental Screen Date: 01/15/24 HPI Pre op, cataracts - no labs or ekg needed HPI Details History of Present Illness The patient is a 64-year-old male presenting for pre-operative clearance for bilateral eye surgery. He has reported no recent history of infection or other complications that might interfere with his upcoming procedure. Specifically, he denies fever, chills, shortness of breath, lymphadenopathy, or recent infections. He is enthusiastic about proceeding with the surgery and converses in complete sentences. No EKG or laboratory testing is required prior to the surgery at this time. Review of Systems - General: Denies fever, chills. - Respiratory: Denies shortness of breath. - Lymphatic: Denies lymphadenopathy. - Infectious Disease: Denies recent infections. Plan The patient is scheduled for bilateral eye surgery and has been cleared for this procedure. Due to his stable health status and lack of recent infections, he is considered an appropriate candidate for surgery. Pre-operative EKG and laboratory work are not required. Follow-up will occur in the upcoming weeks post-surgery to assess recovery and manage any potential complications. Discussion Notes I discussed with the patient the details regarding his upcoming bilateral eye surgery, including the absence of a need for pre-operative EKG or laboratory tests at this time. The patient verbalized understanding and expressed a clear eagerness to proceed with the scheduled surgery. We agreed that he will return in a few weeks for follow-up to evaluate his progress after surgery and address any post-operative issues. The patient understands the process and is in agreement with the plan moving forward. Patient Instructions - Follow pre-operative instructions as provided by the surgical team for tomorrow's eye surgery. - Monitor for any unusual symptoms such as fever, chills, or difficulty breathing, and report them immediately. - Attend follow-up appointment in a few weeks post-surgery. - Maintain general health and wellness without needing pre-op EKG or labs. [facility] Medical History Takes dietary supplements Hearing loss GERD (gastroesophageal reflux disease) History of CVA (cerebrovascular accident) Elevated cholesterol HTN (hypertension) Surgical History Hx of wisdom tooth extraction Hx of colonoscopy Social History Household Members: Spouse Housing: House Are you a primary nurse behavioral health care to a significant other at home: No Do you presently have visiting nurse or other home services: No Patient Tobacco Use Status: Former Tobacco user Tobacco use type: Cigar e-Cigarette/Vaping Use: Never Used service: No Current occupational status: employed Cognitive needs: No Hearing needs: No Vision needs: Yes Questionnaire Thrive Questionnaire Date Thrive assessed: 01/15/24 MARCUS-7 AMB Questionnaire MARCUS-7 Date MARCUS - 7 assessed: 01/15/24 Source: Developed by Drs. Matthew Heaton, Jessica Carolina, Tj Berkowitz and colleagues, with an educational kevin from [employer]. Physical exam (Primary Care) Tobacco/Smoking Status: Tobacco use Status Tobacco use date assessed 01/15/24 01/15/24 12:38 Patient Tobacco Use Status Former Tobacco user 03/18/24 12:58 Tobacco use type Cigar 03/16/24 13:40 e-Cigarette/Vaping Use Never Used 01/15/24 12:38 Thrive Assessment: Date of Thrive Assessment Date Thrive assessed 01/15/24 01/15/24 12:38 Telehealth Telehealth Telehealth Platform: [facility] Location of provider rendering services: practice address Location of patient: address on file Patient Identification confirmed using: Name, : Yes Telehealth method: video Patient verbally consented to treatment: Yes Patient verbally consented to billing insurance company: Yes Patient informed of any privacy concerns related to visit: Yes Minutes spent on Phone/Video with Pt.: 10 Coding Level of Care Code Tele Est Pt Level 3 (24865) Diagnoses Pre-op evaluation Z01.818 Assessment & Plan Assessment & Plan (1) Pre-op evaluation: Code(s): Z01.818 - Encounter for other preprocedural examination Category: Medical Plan .
--- OUTSIDE RECORDS SUMMARY | 2024-07-13 08:51 | XMS_ITS | Clinical Summary ---
Author Organization [facility] Address [address] [place] [address] Care Team Providers Care Dulser Name Role Phone Unavailable Primary Care Provider Unavailabl e Social History Tobacco Use Types Packs/Day Years Used Date Smoking Tobacco: Never Assessed Sex and Gender Information Value Date Recorded Sex Assigned at Not on file Gender Identity Not on file Sexual Orientation Not on file Job Start Date Occupation Industry Not on file Not on file Not on file Plan of Treatment Health Maintenance Due Date Last Done Comments Hepatitis C Screening 1960 COVID-19 Vaccine (#1) 1961 Depression Screening 1973 Preventative Health Evaluation 1979 DTap / Tdap / Td (1 - Tdap) 02/19/1980 Colon Cancer Screening (Colonoscopy) 2006 Shingrix-Zoster Vaccine (1 of 2) 2011 Influenza Vaccine (#1) 2023 RSV Adult > 60+ Yrs or Pregn ant (1 - 1-dose 75+ series) 02/19/2036 Hepatitis B Vaccines Aged Out No long er eligible based on patient's age to complete this topic Pneumococcal Vaccine Aged Out No long er eligible based on patient's age to complete this topic RSV Ped < 20 months Aged Out No longe r eligible based on patient's age to complete this topic
--- OUTSIDE RECORDS SUMMARY | 2024-07-13 08:51 | XMS_ITS ---
Author Organization [facility] Address [address] [place] [address] Care Team Providers Care Horn Player Name Role Phone LEONA GALEANO Primary Care Provider Matthew Barillas [phone] REASON FOR VISIT gerd,dysphagia Problems Problem Type SNOMED Code ICD Code Onset Dates Problem Status W/U Status Risk Notes Problem Gastroesophageal reflux disease (985391118) Gastroesophageal reflux disease (K21.9) Active confirmed Encounters Encounter Location Date Provider Diagnosis [facility] Outpatient [address] [place] [phone] 03/18/2024 Matthew West Hiatal hernia K44.9 ; Gastroesophageal reflux disease K21.9 and Dysphagia R13.10 Assessments Encounter Date Diagnosis (ICD Code) Assessment Notes Treatment Notes Treatment Clinical Notes Section Notes 03/18/2024 Hiatal hernia (ICD-10 - K44.9) 03/18/2024 Gastroesophageal reflux disease (ICD-10 - K21.9) 03/18/2024 Dysphagia (ICD-10 - R13.10) Plan Of Treatment Next Appt Details Provider Name:Matthew West , 08/26/2024 03:00:00 PM, [address], [address], [place], [address], Progress Notes * GEMINI DIAZDOB:1960 ( 64 yo M)Acc No.[id number]:03/18/2024 EGD/MAC Patient:?GEMINI DIAZ Provider:?Matthew West MD :1960???Age:64 Y???Sex:Male Jacek e:03/18/2024 Address:[address] [place] [address] [id number] Pcp:LEONA GALEANO Subjective: * Chief Complaints: * ???1. Gerd,dysphagia. * Medical History:? Objective: * Vitals:? Assessment: * Assessment: 1.?Hiatal hernia - K44.9 (Pr imary)???2.?Gastroesophageal reflux disease - K21.9???3.?Dysphagia - R13.10??? Plan: * Treatment: * Procedure Codes:?44244 UPPER GI ENDOSCOPY, BIOPSY * * The named appointment provid er may or may not be the originator of this progress note, and it is not deemed complete until electronically signed by the appointment provider. Sign off status: Pending * Provider:?Matthew West MD Date:? 024 Generated for Manolo redd/Orlando/Abdismitting on:?07/13/2024 08:50 AM EDT
--- OUTSIDE RECORDS SUMMARY | 2024-07-13 08:51 | XMS_ITS ---
Author Organization [facility] Address [address] [place] [address] Care Team Providers Care Java Xml Developer Name Role Phone LEONA GALEANO Primary Care Provider Matthew Barillas [phone] Allergies No Known Allergies REASON FOR VISIT Patient presents today for dysphagia Social History Tobacco Use: Social History Observation Description Date Details (start date - stop date) Never Smoker NA - NA Tobacco Use/Smoking Question Answer Notes Patient is [...] Never (0 point) Points 3 Interpretation Negative Section Notes: Nonsmoker; no sig alcohol Problems Problem Type SNOMED Code ICD Code Onset Dates Problem Status W/U Status Risk Notes Problem Gastroesophageal reflux disease (disorder) (012891177) Chronic GERD (K21.9) Active confirmed Problem Dysphagia (63676458) Dysphagia (R13.10) Active confirmed Vital Signs Blood pressure systolic 00 mm Hg 01/17/20 24 Blood pressure diastolic 00 mm Hg 024 Height 68 in 01/17/2024 Weight 212 lbs 01/17/2024 BMI 32.23 kg/m2 01/17/2024 Encounters Encounter Location Date Provider Diagnosis [facility] [address] [place] [address] 01/17/2024 Matthew West Chronic GERD K21.9 and Dysphagia R13.10 Assessments Encounter Date Diagnosis (ICD Code) Assessment Notes Treatment Notes Treatment Clinical Notes Section Notes 01/17/2024 Chronic GERD (ICD-10 - K21.9) Overall, Nemesio appears quite well. We did review that his symptoms are most suggestive of some oropharyngeal dysphagia, perhaps in relation to his previous stroke. I don't think this reflects any significant esophageal pathology such as an esophageal stricture or neoplasm. However, I did recommend an upper endoscopy both for evaluation of his symptoms as well as his previous history of reflux so as to rule out any component of esophagitis with esophageal spasm, Hill's esophagus, and/or an esophageal stricture that might need dilation. Full consent was obtained from him for this, including risks of bleeding and perforation. The procedure will be done with monitored anesthesia care. Depending upon the findings we can always start him on acid suppression with a prescription medication if he is found to Have significant esophagitis. We did review his colonoscopy from 2020. Given the fact that the polyp returner to be non-adenomatous and only inflammatory in nature, I recommended that he have a followup colonoscopy in 2030 as a 10 year followup since he does not have a family history of colorectal cancer and is currently not having any worrisome GI complaints from that standpoint. I did advise him to certainly let me know If he has any changes in his bowel movements or bleeding going forward. Nemesio was comfortable with this plan. Thank you again for allowing me to participate in Nemesio's care. I shall continue to keep you advised of his progress. 01/17/2024 Dysphagia (ICD-10 - R13.10) Overall, Nemesio appears quite well. We did review that his symptoms are most suggestive of some oropharyngeal dysphagia, perhaps in relation to his previous stroke. I don't think this reflects any significant esophageal pathology such as an esophageal stricture or neoplasm. However, I did recommend an upper endoscopy both for evaluation of his symptoms as well as his previous history of reflux so as to rule out any component of esophagitis with esophageal spasm, Hill's esophagus, and/or an esophageal stricture that might need dilation. Full consent was obtained from him for this, including risks of bleeding and perforation. The procedure will be done with monitored anesthesia care. Depending upon the findings we can always start him on acid suppression with a prescription medication if he is found to Have significant esophagitis. We did review his colonoscopy from 2020. Given the fact that the polyp returner to be non-adenomatous and only inflammatory in nature, I recommended that he have a followup colonoscopy in 2030 as a 10 year followup since he does not have a family history of colorectal cancer and is currently not having any worrisome GI complaints from that standpoint. I did advise him to certainly let me know If he has any changes in his bowel movements or bleeding going forward. Nemesio was comfortable with this plan. Thank you again for allowing me to participate in Nemesio's care. I shall continue to keep you advised of his progress. Plan Of Treatment Future Test Test Name Order Date UPPER GI ENDOSCOPY BALLOOON DILATION OF ESOPH 01/17/2024 Next Appt Details Follow Up: prn, Reason: Provider Name:Matthew West , 08/26/2024 03:00:00 PM, [address] [place] [address], [address], [place], [address], Progress Notes * GEMINI DIAZDOB:1960 ( 63 yo M)Acc No.[id number]:01/17/2024 Progress Notes Patient:?EMILY GEMINI Provider:?Matthew West MD :1960???Age:63 Y???Sex:Male Jacek e:01/17/2024 Address:[address] [place] [address] Pcp:LEONA GALEANO Subjective: * Chief Complaints: * ???Patient presents today fo r dysphagia * HPI: ???incontinence:? I saw Nemesio in consultation today in regard to further evaluation of his sense of dysphagia, as well as a previous history of an inflammatory colon polyp. ?I last saw Nemesio in July of 2020, at which time he underwent a screening colonoscopy with removal of a large colon polyp that turned out to just be an inflammatory polyp without any adenomatous or other worrisome component. He describes that he had a mild stroke back in 2019 and ever since then has had an occasional issue in which he has trouble swallowing saliva or the food goes down the wrong pipe leads to some coughing during the meal. He does occasionally have a sense of dysphagia to food but localizes that to the throat area and once he actually swallows it out of the mouth it then goes down the esophagus without any difficulty. He enjoys a good appetite and denies any early satiety, nausea, vomiting, abdominal pain, jaundice, nor unintentional weight loss. His bowel movements have been regular and without any sign of bleeding, other than rare episodes of bright red blood on the toilet paper in relation to eating something spicy. This occurs about once every 6 months by his description. He denies any known family history of colon cancer. ?He does describe a previous history of reflux and heartburn but reports that this has resolved with the use of an srva-wjx-ikcslca liquid called Balance 7 that neutralizes acid . * ROS:?General/Constitutional:?Change in appetite?denies.?Chills?denies.?Fatigue?denies.?Ophthalmologic:?Comments?all negative.?ENT:?Comments?all negative.?Respiratory:?hemoptysis?denies.?Cough?denies.?Cardiovascular:?Chest pain?denies.?Orthopnea?denies.?Gastrointestinal:?Comments?See HPI for details.?Genitourinary:?Hematuria?denies.?Dysuria?denies.?Musculoskeletal:?Painful joints?denies.?Weakness?denies.?Skin:?Itching?denies.?Rash?denies.?Neurologic:?Headache?denies.?Seizures?denies.?Psychiatric:?Comments?all negative.? * Medical History:? * Surgical History:?wisdom olimpia th extraction * Hospitalization/Major Diagno stic Procedure:?No Hospitalization History. * Family History:?Father: dece ased, Polyps in his 60's, diagnosed with Colon polyps, Heart disease, HTN (hypertension).?Mother: .? No known hx of colon cancer. 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 ???Nonsmoker; no sig alcohol. * Medications:?DiscontinuedLos brian Potassium 25 MG Tablet 1 tablet Orally Once a dayAtorvastatin Calcium 80 MG Tablet 1 tablet Orally Once a dayBaby Aspirin Medication List reviewed and reconciled with the patientDiscontinued Losartan Potassium 25 MG Tablet 1 tablet Orally Once a dayDiscontinued Atorvastatin Calcium 80 MG Tablet 1 tablet Orally Once a dayDiscontinued Baby Aspirin Medication List reviewed and reconciled with the patient * Allergies:?N.K.D.A.yes[Aller gies Verified] Objective: * Vitals:?Wt: 212 lbs, Ht: 68 in, BMI:32.23 Index, BP: 00/00 mm Hg. * Examination: ???General Examination: ?GENERAL APPEARANCE:?pleasant, well nourished, well developed, in no acute distress.?EYES:?sclera non-icteric.?ORAL CAVITY:?mucosa moist.?NECK/THYROID:?no cervical lymphadenopathy, neck supple.?SKIN:?nonjaundiced, no spider angiomata.?HEART:?S1, S2 normal.?LUNGS:?clear to auscultation bilaterally.?ABDOMEN:?normal bowel sounds, no guarding or rigidity, no guarding or rigidity, no masses palpable, soft, nontender, nondistended.?EXTREMITIES:?no edema.?NEUROLOGIC:?alert and oriented.? Assessment: * Assessment: 1.?Dysphagia - R13.10 (Prima ry)?2.?Chronic GERD - K21.9? Overall, Nemesio appears quite w ell. We did review that his symptoms are most suggestive of some oropharyngeal dysphagia, perhaps in relation to his previous stroke. I don't think this reflects any significant esophageal pathology such as an esophageal stricture or neoplasm. However, I did recommend an upper endoscopy both for evaluation of his symptoms as well as his previous history of reflux so as to rule out any component of esophagitis with esophageal spasm, Hill's esophagus, and/or an esophageal stricture that might need dilation. Full consent was obtained from him for this, including risks of bleeding and perforation. The procedure will be done with monitored anesthesia care. Depending upon the findings we can always start him on acid suppression with a prescription medication if he is found to Have significant esophagitis. We did review his colonoscopy from 2020. Given the fact that the polyp returner to be non-adenomatous and only inflammatory in nature, I recommended that he have a followup colonoscopy in 2030 as a 10 year followup since he does not have a family history of colorectal cancer and is currently not having any worrisome GI complaints from that standpoint. I did advise him to certainly let me know If he has any changes in his bowel movements or bleeding going forward. Nemesio was comfortable with this plan. Thank you again for allowing me to participate in Nemesio's care. I shall continue to keep you advised of his progress. Plan: * Treatment: 2.?Chronic GERD?Procedure: UPPER GI ENDOSCOPY BALLOOON DILATION OF ESOPH (Ordered for 01/17/2024)* with MACsched for 03/18/24 a t 12:20 pm * Procedure Codes:?3017F COLOR ECTAL CA SCREEN DOC RTI3099S TOBACCO [id number] BP SCR NOT PRFRM REC REASON NOS * Preventive Medicine:? ??Counseling:?Care goal follow-up plan:?Above Normal BMI Follow-up?Giving encouragement to exercise,?BMI management provided?Yes.? * Follow Up:?prn * * Sign off status: Completed true * Provider:?Matthew West MD Date:? 024 Generated for Manolo redd/Orlando/Hermes on:?07/13/2024 08:50 AM EDT History and Physical Notes * HPI (History of Present Illness) Category Sub-Category Detail Notes Category Not es incontinence I saw Nemesio in consultation today in regard to further evaluation of his sense of dysphagia, as well as a previous history of an inflammatory colon polyp. I last saw Nemesio in July of 2020, at which time he underwent a screening colonoscopy with removal of a large colon polyp that turned out to just be an inflammatory polyp without any adenomatous or other worrisome component. He describes that he had a mild stroke back in 2019 and ever since then has had an occasional issue in which he has trouble swallowing saliva or the food goes down the wrong pipe leads to some coughing during the meal. He does occasionally have a sense of dysphagia to food but localizes that to the throat area and once he actually swallows it out of the mouth it then goes down the esophagus without any difficulty. He enjoys a good appetite and denies any early satiety, nausea, vomiting, abdominal pain, jaundice, nor unintentional weight loss. His bowel movements have been regular and without any sign of bleeding, other than rare episodes of bright red blood on the toilet paper in relation to eating something spicy. This occurs about once every 6 months by his description. He denies any known family history of colon cancer. He does describe a previous history of reflux and heartburn but reports that this has resolved with the use of an goyn-vlm-ymvxfyr liquid called Balance 7 that neutralizes acid . Examination Category Sub-Category Detail Notes Category Not es General Examination GENERAL APPEARANCE: pleasant , well [...]
--- OUTSIDE RECORDS SUMMARY | 2024-07-13 08:51 | XMS_ITS ---
Author Organization [facility] Address [address] [place] [address] Care Team Providers Care Automobile Body Repairer Name Role Phone LEONA GALEANO Primary Care Provider Matthew Barillas [phone] REASON FOR VISIT Patient presents today for dysphagia Encounters Encounter Location Date Provider Diagnosis [facility] [address] [place] [address] 12/25/2023 Matthew West Plan Of Treatment Next Appt Details Provider Name:Matthew West , 08/26/2024 03:00:00 PM, [address], [address], [place], [address], Progress Notes * GEMINI DIAZDOB:1960 ( 64 yo M)Acc No.[id number]:12/25/2023 Progress Notes Patient:?GEMINI DIAZ Provider:?Matthew West MD :1960???Age:63 Y???Sex:Male Jacek e:12/25/2023 Address:[address] [place] [address] Pcp:LEONA GALEANO Subjective: * Chief Complaints: * ???1. Patient presents today for dysphagia. * Medical History:? Objective: * Vitals:? Assessment: Plan: * Treatment: * * The named appointment provid er may or may not be the originator of this progress note, and it is not deemed complete until electronically signed by the appointment provider. Sign off status: Pending * Provider:?Matthew West MD Date:? 024 Generated for Manolo redd/Oralndo/Hermes on:?07/13/2024 08:50 AM MIGDALIAT
--- OUTSIDE RECORDS SUMMARY | 2024-07-13 08:51 | XMS_ITS | Patient Health Record ---
Author Organization [facility] Address [address] [place] [address] Care Team Providers Care Catering Assistant Name Role Phone LEONA CHRISTY Primary Care Provider Matthew Barillas [phone] Allergies No Known Allergies Results Component Value Reference Range Notes Pathology (Not yet reviewed by provider) Interpretation: Performing Lab:[facility], [address] [place] [phone] Notes/Report: Name: Gemini Diaz Ag e/Sex: 64/M : 1960 Unit#: [id number] Attend Dr: Matthew West MD Re03/18/24 Status : [facility] Disch: SPEC : [id number] RECD : 03/18/24-1316 STATUS: LETHA MORTENSEN NUM: [id number] LAM: 03/18/24-1243 [facility] DR: Matthew West MD ENTERED: 03/18/24- SP TYPE: Surgical OTHR DR: Leona Christy [facility] ORDERED: HE Stain/6, Gross Micro L4/2, Special st. 2, AB/PAS Diagnosis A. EG junction, 37 cm, biopsy: - Cardiac-type mucos a with moderate chronic active inflammation; no intestinal metaplasia seen. - Active esophagitis (maximum eosinophil count 1 per high powered field). B. Esophagus, 20-25 cm, biopsy: Squamous epithelium within normal limits; no inflammation seen. Clinical History Pre-Op Dx: Dysphagia, GERD Post-Op Dx: Hiatal hernia, reflux Microscopic Description A, B. Microscopic se ctions examined. No metaplastic changes are seen, supported by AB/PAS stains (A). Material Received a. EG junction at 37 B. Esophagus at 20-25, r/o EOE Gross Description Received in two parts. Part A: Received in formalin labeled ?EG junction at 37? are 5 palmer-white and rosales-pink irregular tissue fra gments ranging from less than 0.1-0.3 cm, submitted in toto in a cassette labeled A. Part B: Received in formalin labeled ?esophagus at 20-25, rule out EOE? are 3 palmer-white and rosales-pink rectang ular tissue fragments ranging from 0.3-0.4 cm, submitted in toto in a cassette labeled B. CEDS Special studies orde red and performed: AB/PAS stains on A CONTINUED ON NEXT PAGE Name: Gemini Diaz Héctor e/Sex: 64/M : 1960 Unit#: [id number] Attend Dr: Matthew West MD Re03/18/24 Status : [facility] Location: [facility] Disch: SPEC : [id number] RECD : 03/18/24 STATUS: LETHA MORTENSEN NUM: [id number] LAM: 03/18/24-12[address] [facility] [address]: Matthew West MD ENTERED: 03/18/24- SP TYPE: Surgical OTHR DR: Leona Christy ORDERED: HE Stain/6, Gross Micro L4/2, Special st. 2, AB/PAS Copies To: Leona Christy [facility] [address] [place], [place] [id number] Matthew West MD [address] [place], [place] [id number] Signed (si gnature on file) Rolly Gill MD 03/20/24 1327 END OF REPORT Reason For Referral No Information Immunizations Vaccine Route Administration Date Status Comme nts Influenza Unknown 05/26/2020 Refused Social History Tobacco Use: Social History Observation [...] Negative Section Notes: Nonsmoker; no sig alcohol Nonsmoker; no sig alcohol Problems Problem Type SNOMED Code ICD Code Onset Dates Problem Status W/U Status Risk Notes Problem Screening for malignant neoplasm of colon (239173447) Encounter for screening for malignant neoplasm of colon (Z12.11) Active confirmed Problem Dysphagia (63100822) Dysphagia (R13.10) Active confirmed Problem Gastroesophageal reflux disease (721180279) Gastroesophageal reflux disease (K21.9) Active confirmed Problem Preprocedural examination (193916314278250) Preprocedural examination (Z01.818) Active confirmed Problem Gastroesophageal reflux disease (disorder) (762130245) Chronic GERD (K21.9) Active confirmed Vital Signs Blood pressure diastolic 00 mm Hg 01/17/2024 Height 68 in 01/17/2024 Blood pressure systolic 00 mm Hg 01/17/2024 Weight 212 lbs 01/17/2024 BMI 32.23 kg/m2 01/17/2024 Encounters Encounter Location Date Provider Diagnosis [facility] Outpatient [address] [place], [place] [phone] 03/18/2024 Matthew West Hiatal hernia K44.9 ; Gastroesophageal reflux disease K21.9 and Dysphagia R13.10 [facility] [address] [place] [phone] 01/17/2024 Matthew West Chronic GERD K21.9 a nd Dysphagia R13.10 [facility] [address] [place] [phone] 12/25/2023 Matthew West Assessments Encounter Date Diagnosis (ICD Code) Assessment Notes Treatment Notes Treatment Clinical Notes Section Notes 03/18/2024 Gastroesophageal reflux disease (ICD-10 - K21.9) 03/18/2024 Hiatal hernia (ICD-10 - K44.9) 01/17/2024 Dysphagia (ICD-10 - R13.10) Overall, Nemesio [...] 2020. Given the fact that the polyp barrel turner to be non-adenomatous and only inflammatory in [...] keep you advised of his progress. 01/17/2024 Chronic GERD (ICD-10 - K21.9) Overall, [...] 2020. Given the fact that the polyp barrel turner to be non-adenomatous and only inflammatory in [...] to keep you advised of his progress. 03/18/2024 Dysphagia (ICD-10 - R13.10) Plan Of Treatment Pending Test Test Name Order Date Pathology 03/18/2024 Future Test Test Name Order Date COLONOSCOPY 05/26/2020 UPPER GI ENDOSCOPY BALLOOON DILATION OF ESOPH 01/17/2024 Next Appt Details Provider Name:Matthew West , 08/26/2024 03:00:00 PM, [address], [address], [place], [address], Insurance Providers Payer Name Payer Address Payer Phone Subscriber Number Group Number Insured Name Patient Relationship to Insured Coverage Start Date Coverage End Date [employer] [place] [address] [address] [place] [address] [id number] 1 GEMINI DIAZ Self - patient is the insured Medical (General) History Medical History History ICD Code 2019 Minor CVA--a little weakness in the left arm Hypertension Colonoscopy in 09/2010 in [place]--morton d hyperplastic polyps removed Hyperlipidemia Denies VA,DM,Lung disease,renal disease Colonoscopy 07/2020 with an inflammatory nonadenomatous polyp GERD-better on an OTC Balance 7 Surgical History Surgery Date(Month/Year) wisdom teeth extraction
== END 2024-07-13 08:24 | disposition home or self-care (01) ==
LOC: HO.HMCC 08:23
PROVIDERS: PCP Nurse Practitioner Family; Visit Provider Nurse Practitioner Family
DX: Z01.818 Encounter for other preprocedural examination (principal)

== ENCOUNTER → 2024-07-13 08:23 | Outpatient (BNVA) | payer OTHER, SELFPAY | PROVIDERS: PCP Nurse Practitioner Family; Visit Provider Nurse Practitioner Family | DX: Z01.818 Encounter for other preprocedural examination (principal) ==

== ENCOUNTER 2024-07-15 07:00 | Day surgery (SDC) | payer OTHER, SELFPAY ==
--- OUTSIDE RECORDS SUMMARY | 2024-07-14 08:51 | XMS_ITS | Clinical Summary ---
Author Organization [facility] Address [address] [place] [address] Care Team Providers Care Insurance Office Manager Name Role Phone Unavailable Primary Care Provider [...]
--- OUTSIDE RECORDS SUMMARY | 2024-07-14 08:51 | XMS_ITS ---
Author Organization [facility] Address [address] [place] [address] Care Team Providers Care Electronics Tester Name Role Phone LEONA GALEANO Primary Care Provider Matthew Barillas [phone] REASON FOR VISIT gerd,dysphagia Problems Problem Type SNOMED Code ICD Code Onset Dates Problem Status W/U Status Risk Notes Problem Gastroesophageal reflux disease (406729651) Gastroesophageal reflux disease (K21.9) Active confirmed Encounters Encounter Location Date Provider Diagnosis [facility] [place] [address] [place] [phone] 03/18/2024 Matthew West Hiatal hernia K44.9 ; Gastroesophageal reflux disease K21.9 and Dysphagia R13.10 Assessments Encounter Date Diagnosis (ICD Code) Assessment Notes Treatment Notes Treatment Clinical Notes Section Notes 03/18/2024 Hiatal hernia (ICD-10 - K44.9) 03/18/2024 Gastroesophageal reflux disease (ICD-10 - K21.9) 03/18/2024 Dysphagia (ICD-10 - R13.10) Plan Of Treatment Next Appt Details Provider Name:Matthew West , 08/26/2024 03:00:00 PM, [address], [address], [place], [address], Progress Notes * GEMINI DIAZDOB:1960 ( 64 yo M)Acc No.[id number]:03/18/2024 EGD/MAC Patient:?GEMINI DIAZ Provider:?Matthew West MD :1960???Age:64 Y???Sex:Male Jacek e:03/18/2024 Address:[address] [place] [address] [id number] Pcp:LEONA GALEANO Subjective: * Chief Complaints: * ???1. Gerd,dysphagia. * Medical History:? Objective: * Vitals:? Assessment: * Assessment: 1.?Hiatal hernia - K44.9 (Pr imary)???2.?Gastroesophageal reflux disease - K21.9???3.?Dysphagia - R13.10??? Plan: * Treatment: * Procedure Codes:?56294 UPPER GI ENDOSCOPY, BIOPSY * * The named appointment provid er may or may not be the originator of this progress note, and it is not deemed complete until electronically signed by the appointment provider. Sign off status: Pending * Provider:?Matthew West MD Date:? 024 Generated for Manolo redd/[place]/Abdismitting on:?07/14/2024 08:51 AM EDT
--- OUTSIDE RECORDS SUMMARY | 2024-07-14 08:51 | XMS_ITS ---
Author Organization [facility] Address [address] [place] [address] Care Team Providers Care Assistant Fitness Manager Name Role Phone LEONA GALEANO Primary Care Provider Matthew Barillas [phone] REASON FOR VISIT Patient presents today for dysphagia Encounters Encounter Location Date Provider Diagnosis [facility] [address] [place] [address] 12/25/2023 Matthew West Plan Of Treatment Next Appt Details Provider Name:Matthew West , 08/26/2024 03:00:00 PM, [address], [address], [place], [address], Progress Notes * GEMINI DIAZDOB:1960 ( 64 yo M)Acc No.[id number]:12/25/2023 Progress Notes Patient:?GEMINI DIAZ Provider:?Matthew West MD :1960???Age:63 Y???Sex:Male Jacek e:12/25/2023 Address:[address] [place] [address] Pcp:LEONA GALEANO Subjective: * Chief Complaints: * ???1. Patient presents today for dysphagia. * Medical History:? Objective: * Vitals:? Assessment: Plan: * Treatment: * * The named appointment provid er may or may not be the originator of this progress note, and it is not deemed complete until electronically signed by the appointment provider. Sign off status: Pending * Provider:?Mattehw West MD Date:? 024 Generated for Manolo redd/[place] on:?07/14/2024 08:51 AM MIHAELA
--- OUTSIDE RECORDS SUMMARY | 2024-07-14 08:51 | XMS_ITS | Patient Health Record ---
Author Organization [facility] Address [address] [place] [address] Care Team Providers Care Fishing Rod Trimmer Name Role Phone LEONA CHRISTY Primary Care Provider Matthew Barillas [phone] Allergies No Known Allergies Results Component Value Reference Range Notes Pathology (Not yet reviewed by provider) Interpretation: Performing Lab:[facility], [address] [place] [phone] Notes/Report: Name: Gemini Diaz Ag e/Sex: 64/M : 1960 Unit#: [id number] Attend Dr: Matthew West MD Re03/18/24 Status : [facility] Disch: SPEC : [id number] RECD : 03/18/24-1316 STATUS: LETHA MORTENSEN NUM: [id number] LAM: 03/18/24-[address] [facility] [address]: Matthew West MD ENTERED: 03/18/24- SP TYPE: Surgical OTHR DR: Leona Christy [facility] ORDERED: HE Stain/6, Gross Micro L4/2, Special [...] Diaz Héctor e/Sex: 64/M : 1960 Unit#: [id number] Attend Dr: Matthew West MD Re03/18/24 Status : [facility] Location: [facility] Disch: SPEC : [id number] RECD : 03/18/24 STATUS: LETHA MORTENSEN NUM: [id number] LAM: 03/18/24-[address] [facility] [address]: Matthew West MD ENTERED: 03/18/24- SP TYPE: Surgical OTHR DR: Leona Christy ORDERED: HE Stain/6, Gross Micro L4/2, Special st. 2, AB/PAS Copies To: Leona Christy [facility] [address] [place], [place] [phone] Matthew West MD [address] [place], [place] [phone] Signed (si gnature on file) Rolly Gill [...] Problem Screening for malignant neoplasm of colon (220288227) Encounter for screening for malignant neoplasm of colon (Z12.11) Active confirmed Problem Dysphagia (41705212) Dysphagia (R13.10) Active confirmed Problem Gastroesophageal reflux disease (340522873) Gastroesophageal reflux disease (K21.9) Active confirmed Problem Preprocedural examination (403864984293617) Preprocedural examination (Z01.818) Active confirmed Problem Gastroesophageal reflux disease (disorder) (311338183) Chronic GERD (K21.9) Active confirmed Vital Signs Blood pressure diastolic 00 mm Hg 01/17/2024 Height 68 in 01/17/2024 Blood pressure systolic 00 mm Hg 01/17/2024 Weight 212 lbs 01/17/2024 BMI 32.23 kg/m2 01/17/2024 Encounters Encounter Location Date Provider Diagnosis [facility] Outpatient [address] [place], [place] [phone] 03/18/2024 Matthew West Hiatal hernia K44.9 ; Gastroesophageal reflux disease K21.9 and Dysphagia R13.10 [facility] [address] [place] [address] 01/17/2024 Matthew West Chronic GERD K21.9 a nd Dysphagia R13.10 [facility] [address] [place] [address] 12/25/2023 Matthew West Assessments Encounter Date Diagnosis [...] 2020. 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 Given the fact that the polyp turning and beading machine operator to be non-adenomatous and only inflammatory in [...] Name:Matthew West , 08/26/2024 03:00:00 PM, [address], [address], [place], [address], Insurance Providers Payer Name Payer Address Payer Phone Subscriber Number Group Number Insured Name Patient Relationship to Insured Coverage Start Date Coverage End Date [employer] [place] 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
--- OUTSIDE RECORDS SUMMARY | 2024-07-14 08:52 | XMS_ITS ---
Author Organization [facility] Address [address] [place] [address] Care Team Providers Care Tile Setter Name Role Phone LEONA GALEANO Primary Care Provider Matthew Barillas [phone] Allergies No Known Allergies REASON FOR VISIT [...] Risk Notes Problem Gastroesophageal reflux disease (disorder) (870826823) Chronic GERD (K21.9) Active confirmed Problem Dysphagia (73156417) Dysphagia (R13.10) Active confirmed Vital Signs Blood pressure systolic 00 mm Hg 01/17/20 24 Blood pressure diastolic 00 mm Hg 024 Height 68 in 01/17/2024 Weight 212 lbs 01/17/2024 BMI 32.23 kg/m2 01/17/2024 Encounters Encounter Location Date Provider Diagnosis [facility] [address] [place] [address] 01/17/2024 Matthew West Chronic GERD K21.9 and [...] any component of esophagitis with esophageal spasm, Ihll's esophagus, and/or an esophageal stricture that might [...] 2020. Given the fact that the polyp turn down man to be non-adenomatous and only inflammatory in [...] 2020. Given the fact that the polyp turn down man to be non-adenomatous and only inflammatory in [...] Provider Name:Matthew West , 08/26/2024 03:00:00 PM, [address] [place] [address], [address], [place], [address], Progress Notes * GEMINI DIAZDOB:1960 ( 63 yo M)Acc No.[id number]:01/17/2024 Progress Notes Patient:?EMILY GEMINI Provider:?Matthew West MD :1960???Age:63 Y???Sex:Male Jacek e:01/17/2024 Address:[address] [place] [address] Pcp:LEONA GALEANO Subjective: * Chief Complaints: * [...] has resolved with the use of an suqb-wph-unbdpda liquid called Balance 7 that neutralizes acid [...] year??Never (0 point),?Points?3,?Interpretation?Negative.?Miscellaneous:?Marital status: -- 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 ???Nonsmoker; no sig alcohol. * Medications:?DiscontinuedLos [...] 2020. Given the fact that the polyp turn down man to be non-adenomatous and only inflammatory in [...] Procedure Codes:?3017F COLOR ECTAL CA SCREEN DOC QOA6601B TOBACCO NON-WJQYO3720 BP SCR NOT PRFRM REC REASON NOS * Preventive Medicine:? ??Counseling:?Care goal follow-up plan:?Above Normal BMI Follow-up?Giving encouragement to exercise,?BMI management provided?Yes.? * Follow Up:?prn * * Sign off status: Completed true * Provider:?Matthew West MD Date:? 024 Generated for Manolo redd/[place] on:?07/14/2024 08:51 AM EDT History and Physical Notes * [...] he had a mild stroke back in 2018 and ever since then has had an [...] has resolved with the use of an iblm-rgi-gybkzad liquid called Balance 7 that neutralizes acid [...]
[2024-07-15 12:21] VITALS: BMI 34.5
[2024-07-15 12:28] VITALS: BP 130/85; PULSE 67; RESP 15; TEMP 36.3; O2SAT 97
[2024-07-15] MEDS: Lactated Ringers 1,000 ML 100 ML IVCONT (12:44)
--- NOTE | 2024-07-15 14:01 | HO.ANESPROP2 ---
Documented by User: Annette Chinchilla NP 07/14/24 11:46 HPI - Anesthesia Eval Consult details Narrative: 64yo M for Left Superior rectus recession PMFSH Active Problems Active Problems: All Active Problems Pre-op evaluation (Acute) Pancreatic cyst (Acute) Liver lesion (Acute) Dysphagia (Acute) Chronic GERD (Acute) Elevated fasting blood sugar (Acute) Elevated liver enzymes (Acute) Skin lesions (Acute) Loss of hearing (Acute) Screening for colon cancer (Acute) Screening for prostate cancer (Acute) Physical exam (Acute) HTN (hypertension) (Acute) Past Medical History Medical History Takes dietary supplements Hearing loss GERD (gastroesophageal reflux disease) History of CVA (cerebrovascular accident) Elevated cholesterol HTN (hypertension) Family History Family history of problems with anesthesia: No Surgical History Surgical History (Updated 07/15/24 @ 12:20 by Lisa Tate RN) Hx of eye surgery Hx of wisdom tooth extraction Hx of colonoscopy History of Problems with Anesthesia: No Social History Social History Household Members: Spouse Housing: House Are you a primary manager critical care unit to a significant other at home: No Do you presently have visiting nurse or other home services: No Patient Tobacco Use Status: Former Tobacco user Tobacco use type: Cigar e-Cigarette/Vaping Use: Never Used Use of substances other than those prescribed or required for medical reasons: No Are you DNR?: No Advance Directives: No Advance Directives Information Provided: Yes service: No Current occupational status: employed Cognitive needs: No Hearing needs: No Vision needs: Yes Meds Allergies Allergy/AdvReac Type Severity Reaction Status Date / Time No Known Allergies Allergy Verified 07/15/24 12:20 Home Medications ?Medication ?Instructions ?Recorded ?Confirmed ?Last Taken ?Type psyllium husk 0.4 gram capsule 0.8 g PO DAILY 03/16/24 07/15/24 Unknown History aspirin 81 mg tablet 81 mg PO DAILY 07/15/24 07/15/24 Unknown History Assessment and Plan Assessment Anesthesia Assessment: Chart Reviewed Final Anesthetic Review Family History of Problems with Anesthesia: No History of Problems with Anesthesia: No Documented by User: Lisa Paniagua DO 07/15/24 14:02 [facility] Past Medical History Medical History Takes dietary supplements Hearing loss GERD (gastroesophageal reflux disease) History of CVA (cerebrovascular accident) Elevated cholesterol HTN (hypertension) Family History Family history of problems with anesthesia: No Surgical History Surgical History (Updated 07/15/24 @ 12:20 by Lisa Tate RN) Hx of eye surgery Hx of wisdom tooth extraction Hx of colonoscopy History of Problems with Anesthesia: No Social History Social History Household Members: Spouse Housing: House Are you a primary manager critical care unit to a significant other at home: No Do you presently have visiting nurse or other home services: No Patient Tobacco Use Status: Former Tobacco user Tobacco use type: Cigar e-Cigarette/Vaping Use: Never Used Use of substances other than those prescribed or required for medical reasons: No Are you DNR?: No Advance Directives: No Advance Directives Information Provided: Yes service: No Current occupational status: employed Cognitive needs: No Hearing needs: No Vision needs: Yes Meds Allergies Allergy/AdvReac Type Severity Reaction Status Date / Time No Known Allergies Allergy Verified 07/15/24 12:20 Home Medications ?Medication ?Instructions ?Recorded ?Confirmed ?Last Taken ?Type psyllium husk 0.4 gram capsule 0.8 g PO DAILY 03/16/24 07/15/24 Unknown History aspirin 81 mg tablet 81 mg PO DAILY 07/15/24 07/15/24 Unknown History Exam Exam Date and Time: 07/15/24 1400 Height,Weight and Vital Signs: Height 5 ft 7 in Weight 99.79 kg Vital Signs Temperature 97.3 F 07/15/24 12:28 Pulse Rate 67 07/15/24 12:28 Respiratory Rate 15 07/15/24 12:28 Blood Pressure 130/85 07/15/24 12:28 Pulse Oximetry 97 07/15/24 12:28 Oxygen Delivery Method Room Air 07/15/24 12:28 Temperature 97.3 F 07/15/24 12:28 Pulse Rate 67 07/15/24 12:28 Respiratory Rate 15 07/15/24 12:28 Blood Pressure 130/85 07/15/24 12:28 Pulse Oximetry 97 07/15/24 12:28 Oxygen Delivery Method Room Air 07/15/24 12:28 Airway Mallampati Class: I TM Dist: >3cm Neck ROM: Full Loose/Missing/Broken Teeth: No (patient denies any loose or broken teeth) Heart: S1S2 Lungs: CTAB Assessment and Plan Assessment Anesthesia Assessment: Anesthesia Plan Discussed and Chart Reviewed Final Anesthetic Review Family History of Problems with Anesthesia: No History of Problems with Anesthesia: No NPO: Yes ASA Class: II Final Preanesthetic Review: No Changes in Pt Med Stat, Meds/Allgs Chart Reviewed, Consent Obtained/Reviewed and Anes Risks/Benef Reviewed Patient Risk: Low Procedure Risk: Low Anesthetic Plan Anesthetic Plan: GA and Agree w/ Assess. and Plan Disposition: Standard PACU
--- NOTE | 2024-07-15 14:52 | HO.OPHTHAL ---
Ophthalmology Operative Note Date of Service: 07/15/24 Narrative: Diagnosis left hypertropia. Postoperative diagnosis same. Procedure recession of left superior rectus [address] Luque anesthesia general complications none. The patient was brought to the operative room placed under general anesthesia. The left eye was prepped and draped in the usual sterile ophthalmic fashion. Lid speculum was placed in the eye and an incision was made down to bare sclera in the superotemporal fornix. The superior rectus was hooked and secured with a double-armed Vicryl suture. It was disinserted from the globe and reattached to a position 5 mm behind the original insertion. Conjunctiva was closed with interrupted Vicryl sutures. The patient was then awoken from general anesthesia and discharged to postoperative recovery in good condition.
[2024-07-15 14:55] VITALS: BP 128/88; PULSE 81; RESP 16; TEMP 36.1; O2SAT 94
[2024-07-15 15:00] VITALS: BP 126/87; PULSE 76; RESP 16; O2SAT 94
[2024-07-15 15:05] VITALS: BP 131/90; PULSE 77; RESP 18; O2SAT 94
[2024-07-15 15:10] VITALS: BP 144/89; PULSE 69; RESP 16; O2SAT 93
[2024-07-15 15:25] VITALS: BP 141/91; PULSE 68; RESP 16; TEMP 36.1; O2SAT 95
== END 2024-07-15 16:20 | disposition home or self-care (01) ==
PROVIDERS: PCP Nurse Practitioner Family; Visit Provider Ophthalmology
PROC: (CPT 67314; principal; 2024-07-15 14:50)
DX: H50.22 Vertical strabismus, left eye (principal); H53.2 Diplopia; H91.90 Unspecified hearing loss, unspecified ear; I10 Essential (primary) hypertension; E78.00 Pure hypercholesterolemia, unspecified; K21.9 Gastro-esophageal reflux disease without esophagitis; Z86.73 Personal history of transient ischemic attack (TIA), and cerebral infarction without residual deficits; Z79.899 Other long term (current) drug therapy; Z87.891 Personal history of nicotine dependence
CPT/HCPCS: 67314; J1100; J1596; J2003; J2405; J2704; J3010

== ENCOUNTER 2024-10-30 15:37 | Outpatient (REF) | payer OTHER, SELFPAY ==
--- OUTSIDE RECORDS SUMMARY | 2024-10-30 15:40 | XMS_ITS | Patient Health Record ---
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 Name Role Phone LEONA GALEANO Primary Care Provider Matthew Barillas [phone] Allergies No Known Allergies Results Component Value Reference Range Notes Pathology (Not yet reviewed by provider) Interpretation: Performing Lab:[facility], [address] [place] [phone] Notes/Report: Reason For Referral No Information Medications Medication SIG (Take, Route, Fr equency, Duration) Notes Start Date End Date Status Aspirin 81 81 MG 1 tablet Orally Once a day Active Immunizations Vaccine Route Administration Date Status Comme nts Influenza Unknown 05/26/2020 Refused Influenza Unknown 10/30/2024 Refused Social History Tobacco Use: Social History [...] no sig alcohol Nonsmoker; no sig alcohol Nonsmoker; no sig alcohol Problems Problem Type SNOMED Code ICD Code Onset Dates Problem Status W/U Status Risk Notes Problem Screening for malignant neoplasm of colon (545868170) Encounter for screening for malignant neoplasm of colon (Z12.11) Active confirmed Problem Dysphagia (69587060) Dysphagia (R13.10) Active confirmed Problem Gastroesophageal reflux disease (756046740) Gastroesophageal reflux disease (K21.9) Active confirmed Problem Elevated liver enzymes level (223829991) Elevated liver function tests (R79.89) Active confirmed Problem Preprocedural examination (082656257240069) Preprocedural examination (Z01.818) Active confirmed Problem Pancreatic cyst (74040284) Pancreatic cyst (K86.2) Active confirmed Problem Lesion of liver (035714537) Liver lesion (K76.9) Active confirmed Problem Abnormal findings diagnostic imaging of liver and biliary tract (650306095) Abnormal MRI, liver (R93.2) Active confirmed Problem Cyst and pseudocyst of pancreas (959631150) Pancreas cyst (K86.2) Active confirmed Problem Gastroesophageal reflux disease (disorder) (607937492) Chronic GERD (K21.9) Active confirmed Vital Signs Temperature 98.0 degrees Fahrenheit 10/30/2024 Blood pressure diastolic 01 mm Hg 10/30/2024 Height 68 in 10/30/2024 Blood pressure systolic 001 mm Hg 10/30/2024 Weight 217.8 lbs 10/30/2024 BMI 33.11 kg/m2 10/30/2024 Encounters Encounter Location Date Provider Diagnosis [facility] [address] [place] [id number] 03/18/2024 Matthew West Hiatal hernia K44.9 ; Gastroesophageal reflux disease K21.9 and Dysphagia R13.10 [facility] [address] [place] [phone] 10/30/2024 Matthew West Abnormal MRI, liver R93.2 ; Elevated liver function tests R79.89 and Pancreas cyst K86.2 [facility] [address] [place] [phone] 01/17/2024 Matthew West Chronic GERD K21.9 a nd Dysphagia R13.10 [facility] [address] [place] [phone] 12/25/2023 Matthew West [facility] [address] [place] [phone] 08/26/2024 Matthew West Pancreatic cyst K86. 2 and Liver lesion K76.9 Assessments Encounter Date Diagnosis (ICD Code) Assessment Notes Treatment Notes Treatment Clinical Notes Section Notes 03/18/2024 Gastroesophageal reflux disease (ICD-10 - K21.9) 03/18/2024 Hiatal hernia (ICD-10 - K44.9) 10/30/2024 Elevated liver function tests (ICD-10 - R79.89) Overall, Nemesio appears well and is not having any worrisome symptoms nor showing any signs of significant liver disease. We did review that the slightly elevated LFTs are most likely due to fatty liver in relation to his risk factors of some obesity and hyperlipidemia. We did review that he should follow-up with you and make sure he does not need any medication for the elevated lipids. He does report that he had been on statins before but could not tolerate those. We did review the need to be on a careful diet, avoid unhealthy foods, minimize alcohol use, and try to lose weight. I shall check a complete liver workup as described below including labs to rule out chronic viral hepatitis, iron overload, alpha-1 antitrypsin disease, and autoimmune disease. I suspect all those test will be negative and we will be left with a diagnosis of fatty liver. I do not think he requires a liver biopsy at this time but certainly if the liver enzymes climb to 2 or 3 times normal or above, then I would recommend a liver biopsy at that time. I shall schedule him for a follow-up MRI of the liver and abdomen with Eovist contrast as recommended by the radiologist after last February's MRI. We can obviously recheck the pancreatic cyst at that time as well. I shall check the below tumor markers as well in regard to the pancreatic and liver lesions. I did review with Nemesio that I suspect all of these findings are benign and will not pose any clinical problems going forward, but nonetheless we do need to do follow-up studies on them and then follow them periodically with further imaging studies. We did review the findings on his upper endoscopy last March and at this point he is doing well. I do not think he needs to be on any acid suppression given the findings on the endoscopy and no clinical symptoms of reflux at this time. He is not having any further symptoms of dysphagia and therefore I advised him to observe things and let me know if things recur. As long as things are stable I do not think you need any further upper endoscopies. We did review that he will be due for a follow-up colonoscopy 2030 for screening. If things remain well I advised him to see me in 6 months for a follow-up visit. Once I have the results of his upcoming imaging studies and laboratories we could then make a decision as to how often he would need follow-up MRIs of his liver and pancreas. Nemesio was comfortable with this plan. Thank you again for allowing me to participate in Nemesio's care. I shall continue to keep you advised of his progress. 10/30/2024 Abnormal MRI, liver (ICD-10 - R93.2) Overall, Nemesio appears well and is not having any worrisome symptoms nor showing any signs of significant liver disease. We did review that the slightly elevated LFTs are most likely due to fatty liver in relation to his risk factors of some obesity and hyperlipidemia. We did review that he should follow-up with you and make sure he does not need any medication for the elevated lipids. He does report that he had been on statins before but could not tolerate those. We did review the need to be on a careful diet, avoid unhealthy foods, minimize alcohol use, and try to lose weight. I shall check a complete liver workup as described below including labs to rule out chronic viral hepatitis, iron overload, alpha-1 antitrypsin disease, and autoimmune disease. I suspect all those test will be negative and we will be left with a diagnosis of fatty liver. I do not think he requires a liver biopsy at this time but certainly if the liver enzymes climb to 2 or 3 times normal or above, then I would recommend a liver biopsy at that time. I shall schedule him for a follow-up MRI of the liver and abdomen with Eovist contrast as recommended by the radiologist after last February's MRI. We can obviously recheck the pancreatic cyst at that time as well. I shall check the below tumor markers as well in regard to the pancreatic and liver lesions. I did review with Nemesio that I suspect all of these findings are benign and will not pose any clinical problems going forward, but nonetheless we do need to do follow-up studies on them and then follow them periodically with further imaging studies. We did review the findings on his upper endoscopy last March and at this point he is doing well. I do not think he needs to be on any acid suppression given the findings on the endoscopy and no clinical symptoms of reflux at this time. He is not having any further symptoms of dysphagia and therefore I advised him to observe things and let me know if things recur. As long as things are stable I do not think you need any further upper endoscopies. We did review that he will be due for a follow-up colonoscopy 2030 for screening. If things remain well I advised him to see me in 6 months for a follow-up visit. Once I have the results of his upcoming imaging studies and laboratories we could then make a decision as to how often he would need follow-up MRIs of his liver and pancreas. Nemesio was comfortable with this plan. Thank [...] 2020. Given the fact that the polyp wood turner to be non-adenomatous and only inflammatory [...] 2020. Given the fact that the polyp wood turner to be non-adenomatous and only inflammatory [...] to keep you advised of his progress. 08/26/2024 Pancreatic cyst (ICD-10 - K86.2) 08/26/2024 Liver lesion (ICD-10 - K76.9) 03/18/2024 Dysphagia (ICD-10 - R13.10) 10/30/2024 Pancreas cyst (ICD-10 - K86.2) Overall, Nemesio appears well and is not having any worrisome symptoms nor showing any signs of significant liver disease. We did review that the slightly elevated LFTs are most likely due to fatty liver in relation to his risk factors of some obesity and hyperlipidemia. We did review that he should follow-up with you and make sure he does not need any medication for the elevated lipids. He does report that he had been on statins before but could not tolerate those. We did review the need to be on a careful diet, avoid unhealthy foods, minimize alcohol use, and try to lose weight. I shall check a complete liver workup as described below including labs to rule out chronic viral hepatitis, iron overload, alpha-1 antitrypsin disease, and autoimmune disease. I suspect all those test will be negative and we will be left with a diagnosis of fatty liver. I do not think he requires a liver biopsy at this time but certainly if the liver enzymes climb to 2 or 3 times normal or above, then I would recommend a liver biopsy at that time. I shall schedule him for a follow-up MRI of the liver and abdomen with Eovist contrast as recommended by the radiologist after last February's MRI. We can obviously recheck the pancreatic cyst at that time as well. I shall check the below tumor markers as well in regard to the pancreatic and liver lesions. I did review with Nemesio that I suspect all of these findings are benign and will not pose any clinical problems going forward, but nonetheless we do need to do follow-up studies on them and then follow them periodically with further imaging studies. We did review the findings on his upper endoscopy last March and at this point he is doing well. I do not think he needs to be on any acid suppression given the findings on the endoscopy and no clinical symptoms of reflux at this time. He is not having any further symptoms of dysphagia and therefore I advised him to observe things and let me know if things recur. As long as things are stable I do not think you need any further upper endoscopies. We did review that he will be due for a follow-up colonoscopy 2030 for screening. If things remain well I advised him to see me in 6 months for a follow-up visit. Once I have the results of his upcoming imaging studies and laboratories we could then make a decision as to how often he would need follow-up MRIs of his liver and pancreas. Nemesio was comfortable with this plan. Thank you again for allowing me to participate in Nemesio's care. I shall continue to keep you advised of his progress. Plan Of Treatment Pending Test Test Name Order Date BUN 10/30/2024 LIVER PROFILE 10/30/2024 LIVER PROFILE 08/26/2024 IRON + IBC (FE) 10/30/2024 CEA 08/26/2024 CEA 10/30/2024 CBC w DIFF 10/30/2024 ALPHA-FETOPROTEIN,TUMOR MARKER ALPHA-FETOPROTEIN,TUMOR MARKER CA 19-9 10/30/2024 CA 19-9 08/26/2024 MRI ABD W&WO CONTRAST 10/30/2024 Prothrombin Time INR 10/30/2024 Creatinine 10/30/2024 Ferritin 10/30/2024 Alpha 1 Anti-trypsin 10/30/2024 Liver Fibrosis Pnl 10/30/2024 SAVANAH Reflex Titer and Pattern 10/30/2024 Mitochondrial Antibody 10/30/2024 Smooth Muscle Antibody 10/30/2024 Hepatitis B,C Profile 10/30/2024 Pathology 03/18/2024 Hemoglobin A1c 10/30/2024 Future Test Test Name Order Date COLONOSCOPY 05/26/2020 UPPER GI ENDOSCOPY BALLOOON DILATION OF ESOPH 01/17/2024 Next Appt Details Provider Name:Matthew West , 11/05/2025 01:00:00 PM, [address] [facility], [address], [place], [address], Insurance Providers Payer Name Payer Address Payer Phone Subscriber Number Group Number Insured Name Patient Relationship to Insured Coverage Start Date Coverage End Date [employer] 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 There was no evidence of an esophageal ring or stricture and esophageal dilation was not performed Elevated LFTs due to presume d fatty liver. Imaging with ultrasound and MRI in February 2024 revealed several hepatic lesions which are felt to be represent hepatic adenomas or focal nodular hyperplasia. He is having a follow-up MRI of the liver in summer 2024. 1.4 cm pancreatic cyst found incidentally during his liver MRI. There is no pancreatic ductal abnormality. Surgical History Surgery Date(Month/Year) wisdom teeth extraction
--- OUTSIDE RECORDS SUMMARY | 2024-10-30 15:40 | XMS_ITS | Clinical Summary ---
Author Organization [facility] Address [address] [place] [address] Care Team Providers Care Database Specialist Name Role Phone Unavailable Primary Care Provider [...] (1 of 2) 2011 Influenza Vaccine (#1) 2024 RSV Adult > 60+ Yrs or Pregn [...]
[2024-10-30 15:59] LABS: MANUAL DIFF FLAG NO
[2024-10-30 17:08] LABS: Hematocrit 42.4 % (42.0-52.0); Hemoglobin 14.5 g/dl (14.0-18.0); Imm Gran Abs Auto 0.03 X10*3/uL (0.00-0.03); Imm Gran Pct Auto 0.5 % (0.0-0.4); Lymphocytes Absolute Auto 2.4 X10*3/uL (1.2-4.9); Mean Corpuscular HGB Conc 34.2 g/dl (31.0-36.0); Mean Corpuscular Hemoglobin 29.5 pg (27.0-33.0); Mean Corpuscular Volume 86.2 fL (80.0-98.0); NRBC Abs Auto 0.000 X10*3/uL (0.0-0.012); NRBC Pct Auto 0.0 /100WBC (0.0-0.2); Platelet Count 229 X10*3/uL (160-400); Red Blood Count 4.92 X10*6/uL (4.60-5.80); White Blood Count 6.0 X10*3/uL (4.8-10.8)
[2024-10-30 17:16] LABS: INTERNATIONAL NORM RATIO 0.9 (0.9-1.1); Prothrombin Time 10.2 SEC (10.9-12.4)
[2024-10-30 18:00] LABS: Alanine Aminotransferase 47 U/L (0-40); Albumin Level 4.7 g/dL (3.5-5.0); Alkaline Phosphatase 68 U/L (39-117); Aspartate Amino Transferase 30 U/L (5-37); Blood Urea Nitrogen 12 mg/dL (9-16); Estimated Glomerular Filt Rate > 60; Iron 81 mcg/dL (45-160); Percent Iron Saturation 28 % (15-50); Total Iron Binding Capacity 292 mcg/dL (228-428); Total Protein 7.2 g/dL (6.5-8.0); Unsaturated Iron Binding 211 ug/dL
[2024-10-30 18:19] LABS: Carcinoembryonic Antigen < 1.73 ng/mL; Ferritin 63 ng/mL (20-250)
[2024-10-31 07:58] LABS: HBS Num1 83.32 mIU/mL (0-7.99); HBc Num1 0.07 S/CO (0.00-0.79); HBsAGNum1 0.32 S/CO (0.00-0.99); Hepatitis B Surface Antigen Negative (Negative); ~HepC Num1 0.08 S/CO (0.00-0.79); ~Hepatitis B Surface Antibody REACTIVE (Nonreactive); ~Hepatitis C Antibody Nonreactive (Nonreactive)
[2024-10-31 09:13] LABS: Hemoglobin A1C 203.9277 umol/L; Total Hemoglobin (HGBA1C) 3835.7226 umol/L
[2024-11-07 20:44] LABS: FIB-ALT 32 U/L (9-46); FIB-Alpha-2-Macroglobulin 153 mg/dL (106-279); FIB-Apolipoprotein A1 170 mg/dL (94-176); FIB-GGT 62 U/L (3-70); FIB-Haptoglobin 106 mg/dL (43-212); FIB-Total Bilirubin 0.4 mg/dL (0.2-1.2); Liver Fibrosis Score 0.20; Liver Fibrosis Stage F0; Nec Inflam Act Grade A0; Nec Inflam Act Score 0.14
[2024-11-09 11:43] LABS: ANA Pattern 3 Nuclear, Speckled; ANA Titer 3 1:80 titer; Anti Nuclear Antibody Pattern Nuclear, Nucleolar; Anti Nuclear Antibody Screen POSITIVE (NEGATIVE); Anti Nuclear Antibody Titer 1:80 titer
== END 2024-10-30 15:38 | disposition home or self-care (01) ==
LOC: HO.LAB 15:37
PROVIDERS: PCP Nurse Practitioner Family; Visit Provider Internal Medicine
DX: K86.2 Cyst of pancreas (principal); R93.2 Abnormal findings on diagnostic imaging of liver and biliary tract; R79.89 Other specified abnormal findings of blood chemistry
CPT/HCPCS: 36415; 80076; 81596; 82103; 82105; 82378; 82565; 82728; 83036; 83540; 84520; 85025; 85610; 86015; 86038; 86039; 86301; 86381; 86704; 86706; 86803; 87340

== ENCOUNTER → 2024-11-20 14:40 | Outpatient (BNV) | payer OTHER, SELFPAY | PROVIDERS: PCP Nurse Practitioner Family; Visit Provider Radiology Diagnostic Radiology | DX: D18.03 Hemangioma of intra-abdominal structures (principal) | CPT/HCPCS: 74183 ==

== ENCOUNTER 2024-11-20 15:41 | Outpatient (REF) | payer OTHER, SELFPAY ==
--- NOTE | ~2024-11-20 | MR_ITS ---
EXAMINATION: MR ABDOMEN WITHOUT THEN WITH IV CONTRAST HISTORY: ABN MR LIVER, ELEVATED LFTS, WITH EOVIST COMPARISON: Comparison is made with the prior examination dated 02/27/2024. TECHNIQUE: Axial in and out of phase T1-weighted gradient echo, axial diffusion weighted, and axial and coronal HASTE T2 with fat saturation images were obtained through the abdomen. Subsequently, fat suppressed axial and coronal T1-weighted images were obtained after the intravenous administration of 10 mL Eovist. FINDINGS: Liver: There is marked loss of signal intensity in the liver on opposed phase imaging, consistent with steatosis. There is a 1.2 cm T2 hyperintense, T1 hypointense lesion in segment V which demonstrates peripheral nodular enhancement and fill-in over time consistent with a hemangioma. No retention of contrast is seen on 20 minute delayed images. In segment IV, there are 2 areas of interest measuring 2.3 and 1.6 cm in size. These are hypointense on T2-weighted images and hyperintense on precontrast T1-weighted images. These areas become more prominent on out of phase imaging and fat-suppressed images. On subtraction images, no definite enhancement is seen. Findings are most compatible with areas of focal fatty sparing. The hepatic and portal veins are patent. There is no intrahepatic biliary dilatation. Gallbladder/biliary tree: No gallstones are identified. The common bile duct is normal in caliber. No intraluminal filling defects are identified to suggest choledocholithiasis. Spleen: The spleen is unremarkable. Pancreas: Again seen is a 1.1 cm cystic focus in the body of the pancreas without abnormal enhancement. There is no enhancing pancreatic mass. The pancreatic duct is normal in caliber. Adrenals: The adrenal glands are unremarkable. Kidneys: The kidneys are unremarkable. There is no hydronephrosis. Lymph nodes: There is no retroperitoneal lymphadenopathy in the upper abdomen. Fluid: There is no ascites in the upper abdomen. Visualized bowel: The visualized small and large bowel loops are unremarkable in appearance. Visualized bones: The visualized bones demonstrate normal marrow signal intensity. MR/MR abdomen wo/w con IMPRESSION: 1. Hepatic steatosis. Findings consistent with a 1.2 cm hepatic hemangioma segment V. Areas of interest in segment IV likely represent areas of focal fatty sparing as described. 2. 1.1 cm cystic focus in the body of the pancreas. Follow-up is recommended. Electronically signed by: Matthew Choi MD 11/23/2024 07:25 AM EDT RP
--- OUTSIDE RECORDS SUMMARY | 2024-11-20 15:45 | XMS_ITS | Clinical Summary ---
Author Organization [facility] Address [address] [place] [address] Care Team Providers Care Assembly Lead Person Name Role Phone Unavailable Primary Care Provider [...]
--- OUTSIDE RECORDS SUMMARY | 2024-11-20 15:45 | XMS_ITS | Patient Health Record ---
Author Organization [facility] Address [address] [place] [address] Care Team Providers Care Family Physician Name Role Phone LEONA GALEANO Primary Care Provider Matthew Barillas [phone] Allergies No Known Allergies Results Component Value Reference Range Notes Prothrombin Time INR Reviewed date:10/30/2024 07:07:39 PM Interpretation: Performing Lab:[address] [address] Notes/Report: Prothrombin Time 10.2 10.9-12.4 SEC INTERNATIONAL NORM RATIO 0.9 0.9-1.1 INTERNATIONAL NORMALIZED RATIO (INR) REFERENCE RANGES Reference Range For patients not on anticoagulant therapy: 0.9 - 1.1 INR ranges for oral anticoagulant therapy: For prevention and treatment of venous thrombosis and pulmonary embolism: 2.0 - 3.0 For acute myocardial infarction with aspirin therapy: 2.0 - 3.0 For acute myocardial infarction without aspirin therapy: 3.0 - 4.0 For patients with mechanical prosthetic heart valves: 2.5 - 3.5 Creatinine Reviewed date:11/01/2024 07:20:17 PM Interpretation: Performing Lab:[address] [address] Notes/Report: Creatinine 0.77 0.5-1.4 mg/dL Estimated Glomerular Filt Rate > 60 Chronic Kidney Disease: Estimated GFR < 60 mL/min/1.73m2 Severe Kidney Disease: Estimated GFR < 15 mL/min/1.73m2 Ferritin Reviewed date:11/01/2024 07:20:26 PM Interpretation: Performing Lab:[address] [address] Notes/Report: Ferritin 63 20-250 ng/mL Alpha 1 Anti-trypsin Reviewed date:11/07/2024 10:49:44 PM Interpretation: Performing Lab:[facility], [address] [place] [phone] Notes/Report: Alpha 1 Anti-trypsin 138 83-199 mg/dL THIS TEST WAS PERFORMED AT: [facility] [address] [address] GEOVANNI MCGEE MD Liver Fibrosis Pnl Reviewed date:11/07/2024 10:48:45 PM Interpretation: Performing Lab:[facility], [address] [place] [phone] Notes/Report: Liver Fibrosis Score 0.20 Liver Fibrosis Stage F0 Liver Fibrosis Interpretation SEE NOTE no fibrosis Fibro Test Score (f) Metavir Score f>=0 and f<=0.21 : F0 (no fibrosis) f>0.21 and f<=0.27 : F0-F1 (no fibrosis) f>0.27 and f<=0.31 : F1 (minimal fibrosis) f>0.31 and f<=0.48 : F1-F2 (minimal fibrosis) f>0.48 and f<=0.58 : F2 (moderate fibrosis) f>0.58 and f<=0.72 : F3 (advanced fibrosis) f>0.72 and f<=0.74 : F3-F4 (advanced fibrosis) f>0.74 and f<=1.00 : F4 (severe fibrosis) Nec Inflam Act Score 0.14 Nec Inflam Act Grade A0 Nec Inflam Act Interpretation SEE NOTE no activity ActiTest Score (a) Metavir Score a>=0 and a<=0.17 : A0 (no activity) a>0.17 and a<=0.29 : A0-A1 (no activity) a>0.29 and a<=0.36 : A1 (minimal activity) a>0.36 and a<=0.52 : A1-A2 (minimal activity) a>0.52 and a<=0.60 : A2 (significant activity) a>0.60 and a<=0.62 : A2-A3 (significant activity) a>0.62 and a<=1.00 : A3 (severe activity) TEU-Eldas-7-Macroglobuli n 153 106-279 mg/dL FIB-Haptoglobin 106 43-212 mg/dL FIB-Apolipoprotein A1 170 94-176 mg/dL FIB-Total Bilirubin 0.4 0.2-1.2 mg/dL FIB-GGT 62 3-70 U/L FIB-ALT 32 9-46 U/L Reference ID [id number] Footnote SEE NOTE The reliability of results is dependent on compliance with the preanalytical and analytical conditions recommended by [employer]. The tests have to be deferred for: acute hemolysis, acute hepatitis, acute inflammation, extra hepatic cholestasis. The advice of a specialist should be sought for interpretation in chronic hemolysis and Gilbert's syndrome. The test interpretation is not validated in liver transplant patients. Isolated extreme values of one of the components should lead to caution in interpreting the results. In case of discordance between a biopsy result and a test, it is recommended to seek the advice of a specialist. The causes of these discordances could be due to a flaw of the test or to a flaw in the biopsy: i.e. a liver biopsy has a 33% variability rate for one fibrosis stage. FibroTest is interpretable for chronic hepatitis B and C, alcoholic and non alcoholic steatosis. ActiTest is interpretable for chronic hepatitis B and C. The performance characteristics have been determined by [facility]. It has not been cleared or approved by the U.S. Food and Drug Administration. Performance characteristics refer to the analytical performance of the test. AkaRx, the associated logo, [employer] and all associated [employer]ellin are the registered trademarks of [employer]. All third democrat medellin - (R) and (TM) - are the property of their respective owners. (C) [id number] [employer]. All rights reserved. THIS TEST WAS PERFORMED AT: [facility] [address] [place] [address] JENNI LYON MD,PHD,BEV SAVANAH Reflex Titer and Pattern (Not yet reviewed by provider) Interpretation: Performing Lab:[facility], [address] [place] [phone] Notes/Report: Anti Nuclear Antibody Screen POSITIVE NEGATIVE SAVANAH IFA is a first line screen for detecting the presence of up to approximately 150 autoantibodies in various autoimmune diseases. A positive SAVANAH IFA result is suggestive of autoimmune disease and reflexes to titer and pattern. Further laboratory testing may be considered if clinically indicated. For additional information, please refer to http://education.Gigaom/faq/FAQ1 77 (This link is being provided for informational/ educational purposes only.) Anti Nuclear Antibody Titer 1:80 A low level SAVANAH titer may be present in pre-clinical autoimmune diseases and normal individuals. Reference Range <1:40 Negative 1:40-1:80 Low Antibody Level >1:80 Elevated Antibody Level Anti Nuclear Antibody Pattern Nuclear, Nucleolar Nucleolar pattern is associated with systemic sclerosis (scleroderma), systemic sclerosis/polymyositis overlap and Sjogren's syndrome. AC-8,9,10: Nucleolar International Consensus on SAVANAH Patterns (https://doi.org/10151 5/hhdq-4735-5402) SAVANAH Titer 2 1:80 A low level SAVANAH titer may be present in pre-clinical autoimmune diseases and normal individuals. Reference Range <1:40 Negative 1:40-1:80 Low Antibody Level >1:80 Elevated Antibody Level SAVANAH Pattern 2 Nuclear, Homogeneous Homogeneous pattern is associated with systemic lupus erythematosus (SLE), drug-induced lupus and juvenile idiopathic arthritis. AC-1: Homogeneous International Consensus on SAVANAH Patterns (https://doi.org/10151 5pecn-4890-7731) SAVANAH Titer 3 1:80 A low level SAVANAH titer may be present in pre-clinical autoimmune diseases and normal individuals. Reference Range <1:40 Negative 1:40-1:80 Low Antibody Level >1:80 Elevated Antibody Level SAVANAH Pattern 3 Nuclear, Speckled Speckled pattern is associated with mixed connective tissue disease (MCTD), systemic lupus erythematosus (SLE), Sjogren's syndrome, dermatomyositis, and systemic sclerosis/polymyositis overlap. AC-2,4,5,29: Speckled International Consensus on SAVANAH Patterns (https://doi.org/10151 5ksbi-0218-2167) THIS TEST WAS PERFORMED AT: [facility] [address] [place] [phone] GEOVANNI MCGEE MD Mitochondrial Antibody Reviewed date:11/05/2024 11:13:27 AM Interpretation: Performing Lab:[facility], [address] [place] [phone] Notes/Report: Mitochondrial Antibodies NEGATIVE NEGATIVE The specimen was negative for cytoplasmic antibodies, however additional staining was observed suggesting the presence of Antinuclear Antibodies. Consider requesting order code 249, SAVANAH Screen, IFA with Reflex to Titer and Pattern, or order code [id number], SAVANAH Screen, IFA w/reflex Titer/Pattern, and Reflex to Multiplex 11 Ab [place], if clinically indicated. THIS TEST WAS PERFORMED AT: [facility] [address] [address] GEOVANNI MCGEE MD Mitochondrial Ab Titer TNP Smooth Muscle Antibody Reviewed date:11/05/2024 11:13:35 AM Interpretation: Performing Lab:[address] [address] Notes/Report: Smooth Muscle Antibody <20 <20 U Reference Range: <20 U: Negative >or=20 U: Positive Antibodies recognizing actin are the main component of smooth muscle antibodies associated with auto- immune liver disease. Actin antibodies are found in approximately 75% of patients with autoimmune hepatitis (AIH) type 1, approximately 65% of patients with autoimmune cholangitis, approximately 30% of patients with primary biliary cirrhosis and approximately 2% of healthy controls. High values are closely correlated with AIH type 1. THIS TEST WAS PERFORMED AT: [facility]/[address] [address] ERIKA DUARTE MD,PHD Hepatitis B,C Profile Reviewed date:11/01/2024 07:21:19 PM Interpretation: Performing Lab:[facility], [address] [place] [phone] Notes/Report: Hepatitis B Surface Antibody REACTIVE Nonreactive REACTIVE: > 11.99 mIU/mL Hepatitis B Core Antibody Nonreactive Nonreactive Hepatitis C Antibody Nonreactive Nonreactive Antibodies to HCV not detected; does not exclude early acute HCV infection. Hepatitis B Surface Antigen Negative Negative Hemoglobin A1c Reviewed date:11/05/2024 11:38:48 AM Interpretation: Performing Lab:[facility], [address] [place] [phone] Notes/Report: Hemoglobin A1c % 7.0 <6.0 % Hemoglobin A1C Reference Range Adults: 4.8 - 6.0 % Non diabetic: < 6.0 % Goal: < 7.0 % Additional Action Suggested: > 8.0 % Note: Hemoglobin A1c results are invalid for patients with abnormal amounts of HbF. Blood transfusions may impact the HbA1c concentration in the patient sample. Estimated Average Glucose 154 eAG = Estimated average glucose which is %A1C expressed as average glucose, using the formula of the D1R-Xiddjce Average Glucose study (ADAG), Diabetes Care, Vol.31,#8, 2007 Pathology Reviewed date:11/05/2024 11:38:25 AM Interpretation: Performing Lab:[facility], [address] [place] [phone] Notes/Report: Complete Blood Count Auto Di ff Reviewed date:11/01/2024 07:20:05 PM Interpretation: Performing Lab:[facility], [address] [place] [phone] Notes/Report: White Blood Count 6.0 4.8-10.8 X10*3/uL Red Blood Count 4.92 4.60-5.80 X10*6/uL Hemoglobin 14.5 14.0-18.0 g/dl Hematocrit 42.4 42.0-52.0 % Mean Corpuscular Volume 86.2 80.0-98.0 fL Mean Corpuscular Hemoglobin 29.5 27.0-33.0 pg Mean Corpuscular HGB Conc 34.2 31.0-36.0 g/dl Red Cell Distribution Width 13.4 11.0-16.0 % Platelet Count 229 160-400 X10*3/uL Mean Platelet Volume 9.7 9.4-12.4 fL Neutrophils Percent Auto 45.2 45-73 % Imm Gran Pct Auto 0.5 0.0-0.4 % Lymphocytes Percent Auto 40.5 20-40 % Monocytes Percent Auto 9.5 2-11 % Eosinophils Percent Auto 3.5 0-4 % Basophils Percent Auto 0.8 0-2 % NRBC Pct Auto 0.0 0.0-0.2 /100WBC Neutrophils Absolute Auto 2.7 2.0-8.3 x10*3/uL Imm Gran Abs Auto 0.03 0.00-0.03 X10*3/uL Lymphocytes Absolute Auto 2.4 1.2-4.9 X10*3/uL Monocytes Absolute Auto 0.6 0.1-1.2 X10*3/uL Eosinophils Absolute Auto 0.2 0.0-0.4 X10*3/uL Basophils Absolute Auto 0.1 0.0-0.2 X10*3/uL NRBC Abs Auto 0.000 0.0-0.012 X10*3/uL Liver Panel Reviewed date:11/01/2024 07:17:43 PM Interpretation: Performing Lab:[address] [address] Notes/Report: Bilirubin Total 0.3 0.0-1.0 mg/dL Bilirubin Direct 0.1 0.0-0.5 mg/dL Aspartate Amino Transferase 30 5-37 U/L Alanine Aminotransferase 47 0-40 U/L Total Protein 7.2 6.5-8.0 g/dL Albumin Level 4.7 3.5-5.0 g/dL Alkaline Phosphatase 68 39-117 U/L Blood Urea Nitrogen Reviewed date:11/01/2024 07:17:34 PM Interpretation: Performing Lab:[facility], [address] [place] [phone] Notes/Report: Blood Urea Nitrogen 12 9-16 mg/dL IRON PROFILE Reviewed date:11/01/2024 07:17:19 PM Interpretation: Performing Lab:[facility], [address] [place] [phone] Notes/Report: Iron 81 45-160 mcg/dL Total Iron Binding Capacity 292 228-428 mcg/dL Percent Iron Saturation 28 15-50 % Unsaturated Iron Binding 211 Carcinoembryonic Antigen Reviewed date:11/01/2024 07:17:08 PM Interpretation: Performing Lab:[address] [phone] Notes/Report: Carcinoembryonic Antigen < 1.73 CEA Reference Range: 93.4% Non-Smokers = 0.0-3.0 ng/mL 95.6% Smokers = 0.0-5.0 ng/mL CEA Methodology: Cordon Alinity i Chemiluminescent Microparticle Immunoassay (CMIA) CEA testing can have significant value in monitoring of patients with diagnosed malignancies in whom changing concentrations of CEA are observed. Values obtained with different assay methods cannot be used interchangeably. Carbohydrate Antigen 19-9 Reviewed date:11/07/2024 10:48:24 PM Interpretation: Performing Lab:[facility], [address] [place] [phone] Notes/Report: Carbohydrate Antigen 19-9 16 <34 U/mL This test was performed using the Siemens chemiluminescent method. Values obtained from different assay methods cannot be used interchangeably. CA 19-9 levels, regardless of value, should not be interpreted as absolute evidence of the presence or absence of disease. THIS TEST WAS PERFORMED AT: [facility] [address] [place] [phone] GEOVANNI MCGEE MD Alpha Fetoprotein Reviewed date:11/07/2024 10:48:11 PM Interpretation: Performing Lab:[facility], [address] [place] [phone] Notes/Report: Alpha Fetoprotein 5.1 <6.1 ng/mL This test was performed using the [employer] chemiluminescent method. Values obtained from different assay methods cannot be used interchangeably. AFP levels, regardless of value, should not be interpreted as absolute evidence of the presence or absence of disease. THIS TEST WAS PERFORMED AT: [facility] [address] [place] [phone] GEOVANNI MCGEE MD Reason For Referral No Information Medications Medication [...] Problem Screening for malignant neoplasm of colon (197749935) Encounter for screening for malignant neoplasm of colon (Z12.11) Active confirmed Problem Dysphagia (93499878) Dysphagia (R13.10) Active confirmed Problem Gastroesophageal reflux disease (343126351) Gastroesophageal reflux disease (K21.9) Active confirmed Problem Elevated liver enzymes level (649321736) Elevated liver function tests (R79.89) Active confirmed Problem Preprocedural examination (314921974609924) Preprocedural examination (Z01.818) Active confirmed Problem Pancreatic cyst (78046562) Pancreatic cyst (K86.2) Active confirmed Problem Lesion of liver (728334866) Liver lesion (K76.9) Active confirmed Problem Abnormal findings diagnostic imaging of liver and biliary tract (944377021) Abnormal MRI, liver (R93.2) Active confirmed Problem Cyst and pseudocyst of pancreas (311056210) Pancreas cyst (K86.2) Active confirmed Problem Gastroesophageal reflux disease (disorder) (936079949) Chronic GERD (K21.9) Active confirmed Vital Signs Temperature 98.0 degrees Fahrenheit 10/30/2024 Blood pressure diastolic 01 mm Hg 10/30/2024 Height 68 in 10/30/2024 Blood pressure systolic 001 mm Hg 10/30/2024 Weight 217.8 lbs 10/30/2024 BMI 33.11 kg/m2 10/30/2024 Encounters Encounter Location Date Provider Diagnosis [facility] [address] [place] [id number] 03/18/2024 Matthew West Hiatal hernia K44.9 ; Gastroesophageal reflux disease K21.9 and Dysphagia R13.10 [facility] [address] [place] [phone] 01/17/2024 Matthew West Chronic GERD K21.9 a nd Dysphagia R13.10 [facility] [address] [place] [phone] 10/30/2024 Matthew West Abnormal MRI, liver R93.2 ; Elevated liver function tests R79.89 and Pancreas cyst K86.2 [facility] [address] [place] [phone] 12/25/2023 Matthew West [facility] [address] [place] [address] 08/26/2024 Matthew West Pancreatic cyst K86. 2 [...] 2020. Given the fact that the polyp necktie turner to be non-adenomatous and only inflammatory [...] 2020. Given the fact that the polyp necktie turner to be non-adenomatous and only inflammatory [...] keep you advised of his progress. 10/30/2024 Elevated liver function tests (ICD-10 - [...] described below including labs to rule out undiagnosed diabetes, chronic viral hepatitis, iron overload, alpha-1 antitrypsin disease, and autoimmune disease. I suspect all those tests will be negative and we will be [...] as recommended by the radiologist after last s MRI. We can recheck the pancreatic cyst at that time [...] things are stable I do not think he needs any further upper endoscopies. We did review that he will be due for a follow-up colonoscopy in 2030 for screening. If things remain well [...] described below including labs to rule out undiagnosed diabetes, chronic viral hepatitis, iron overload, alpha-1 antitrypsin disease, and autoimmune disease. I suspect all those tests will be negative and we will be [...] radiologist after last February's MRI. We can recheck the pancreatic cyst at that time [...] things are stable I do not think he needs any further upper endoscopies. We did review that he will be due for a follow-up colonoscopy in 2030 for screening. If things remain well [...] described below including labs to rule out undiagnosed diabetes, chronic viral hepatitis, iron overload, alpha-1 antitrypsin disease, and autoimmune disease. I suspect all those tests will be negative and we will be [...] radiologist after last February's MRI. We can recheck the pancreatic cyst at that time [...] things are stable I do not think he needs any further upper endoscopies. We did review that he will be due for a follow-up colonoscopy in 2030 for screening. If things remain well [...] Name Order Date BUN 10/30/2024 LIVER PROFILE 08/26/2024 LIVER PROFILE 10/30/2024 IRON + IBC (FE) 10/30/2024 CEA 08/26/2024 CEA 10/30/2024 CBC w DIFF 10/30/2024 ALPHA-FETOPROTEIN,TUMOR MARKER 5 ALPHA-FETOPROTEIN,TUMOR MARKER 5 CA 19-9 10/30/2024 CA 19-9 08/26/2024 MRI ABD W&WO CONTRAST 10/30/2024 SAVANAH Reflex Titer and Pattern 10/30/2024 Future Test Test Name Order Date COLONOSCOPY 05/26/2020 UPPER GI ENDOSCOPY BALLOOON DILATION OF ESOPH 01/17/2024 Next Appt Details Provider Name:Matthew West , 11/05/2025 01:00:00 PM, [address] [facility], [address], [place], [address], Insurance Providers Payer Name Payer Address Payer Phone Subscriber Number Group Number Insured Name Patient Relationship to Insured Coverage Start Date Coverage End Date [employer] 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
[2024-11-20] MEDS: Gadoxetate Disodium 10 ML VIAL IVPUSH (16:31)
== END 2024-11-20 15:42 | disposition home or self-care (01) ==
LOC: HO.MRI 15:41
PROVIDERS: PCP Nurse Practitioner Family; Visit Provider Internal Medicine
DX: R93.2 Abnormal findings on diagnostic imaging of liver and biliary tract (principal); R79.89 Other specified abnormal findings of blood chemistry
CPT/HCPCS: 74183; A9581

== ENCOUNTER 2024-11-26 10:23 | Outpatient (AMB) | payer OTHER, SELFPAY ==
[2024-11-26 10:33] VITALS: BP 132/92; PULSE 78; O2SAT 97; BMI 33.2
--- NOTE | 2024-11-26 10:33 | A.OFFPC_ITS ---
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: No Accompanied by: Self / Same As Patient Allergies No Known Allergies Allergy (Verified 11/26/24 10:34) Medication List - Last Reconciled 11[facility]26/24 [facility] 81 mg PO DAILY hydrochlorothiazide 12.5 mg PO DAILY psyllium husk 0.8 grams PO DAILY Tobacco use date assessed: 11/26/24 Dental Screening Dental Screen Date: 11/26/24 Did you have a dental visit in the last 12 months?: No Did you have a dental problem in the last 6 months where you did not have access to dental care?: No Was dental information given to patient?: Patient declined HPI 6 months f/up,resched HPI Details Chief Complaint The patient presents for a generalized follow-up visit. History of Present Illness The patient is a 64-year-old male presenting with a generalized follow-up visit. He has a history of hypertension, for which a low dose of hydrochlorothiazide is being initiated. He is advised to monitor his blood pressure at home and report the values for further assessment. In 2019, the patient possibly experienced a cerebrovascular accident (CVA), and he is currently on aspirin therapy for cardiovascular risk reduction. There is consideration for starting a low-dose statin due to previous muscle aches experienced. The patient denies experiencing any chest pain, shortness of breath, headaches, blurred vision, or dizziness. He was encouraged to increase his physical activity, as he was previously very active. Social History - Exercise: Previously very physically a ctive, encouraged to increase physical activity. Health Maintenance - Cardiovascular risk reduction: Aspirin therapy continued. - Blood pressure monitoring: Patient to monitor at home and report values. Review of Systems - Cardiovascular: Denies chest pain, diz ziness. - Respiratory: Denies shortness of breat h. - Neurological: Denies headaches, blurre d vision. Physical Exam General: Cooperative, healthy appearing, comfortable, no acute distress and well developed Orientation: Patient oriented x3 Limitations: No limitations Head: Normal to inspection Ears: Hearing grossly normal bilaterally Nose: Normal external nose present Face and sinus: Normal facial exam Eyes: Appearance normal, both eyes and all related structures Neck: Normal visual inspection and Yes full ROM Respiratory: Normal respiratory effort and able to speak in complete sentences. Clear to auscultation bilaterally Cardiovascular: Regular rate and rhythm. Normal S1 and S2 GI: Normal to inspection. Soft to palpation and nontender Neuro: Patient oriented x3 Extremities: Normal to inspection Results Plan The patient will begin a low dose of hydrochlorothiazide to manage hypertension, and he is instructed to monitor his blood pressure at home, reporting the values for further evaluation. Aspirin therapy will be continued for cardiovascular risk reduction, especially considering the possible cerebrovascular accident in 2019. There is a consideration to initiate a low-dose statin in the future, given the patient's previous experience of muscle aches. The patient is encouraged to increase physical activity, as he was previously very active, to aid in overall cardiovascular health. Follow-up is planned in six months for a full physical examination, with interim lab work ordered. NOTE: pt sees GI on a regular basis for a pancreatic cyst and also sees urology for a elevated PSA. Discussion Notes I discussed with the patient the initiation of a low dose of hydrochlorothiazide for hypertension management and the importance of home blood pressure monitoring. We reviewed the continuation of aspirin therapy for cardiovascular risk reduction, considering his possible cerebrovascular accident in 2019. I al so considered the potential reintroduction of a low-dose statin, given his previous muscle aches with higher doses, and encouraged him to increase physical activity. A follow-up appointment is scheduled in six months for a comprehensive physical examination, with interim lab work to guide treatment adjustments. Patient Instructions - Start taking hydrochlorothiazide as pr escribed for blood pressure management. - Monitor your blood pressure at home an d report the readings to the clinic. - Continue taking aspirin daily as direc daya. - Increase physical activity to improve cardiovascular health. - Schedule a follow-up appointment in si x months for a full physical examination. [facility] Medical History Takes dietary supplements Hearing loss GERD (gastroesophageal reflux disease) History of CVA (cerebrovascular accident) Elevated cholesterol HTN (hypertension) Surgical History Hx of eye surgery Hx of wisdom tooth extraction Hx of colonoscopy Social History Household Members: Spouse Housing: House Are you a primary manager primary care to a significant other at home: No Do you presently have visiting nurse or other home services: No Patient Tobacco Use Status: Former Tobacco user Tobacco use type: Cigar e-Cigarette/Vaping Use: Never Used service: No Current occupational status: employed Cognitive needs: No Hearing needs: No Vision needs: Yes Questionnaire PHQ-9 Over the last 2 weeks, how often have you been bothered by any of the following problems? 1. Little interest or pleasure in doing things: not at all 2. Feeling down, depressed, or hopeless: not at all 3. Trouble falling or staying asleep, or sleeping too much: not at all 4. Feeling tired or having little energy: not at all 5. Poor appetite or overeating: not at all 6. Feeling bad about yourself - or that you are a failure or have let yourself or your family down: not at all 7. Trouble concentrating on things, such as reading the newspaper or watching television: not at all 8. Moving or speaking so slowly that other people could have noticed. Or the opposite - being so fidgety or restless that you have been moving around a lot more than usual: not at all 9. Thoughts that you would be better off or of hurting yourself in some way: not at all Total score: 0 Depression Screening Interpretation: Negative Depression Screening Done: Yes 58999 - PHQ-9 Billing: Yes Source: Developed by Drs. Matthew Heaton, Jessica Carolina, Tj Berkowitz and colleagues, with an educational kevin from [employer]. Thrive Questionnaire Date Thrive assessed: 11/20/24 I am a: Patient What is your living situation today?: I have a steady place to live Within the past 12 months, did the food you bought not last and you didn't have the money to get more?: Never true Within the past 12 months, did you worry whether your food would run out before you got money to buy more?: Never true Do you have trouble paying for medicines?: No Do you have trouble getting transportation to medical appointments?: No Do you have trouble paying your heating and electricity bill?: No Do you have trouble taking care of your child, family member or friend?: No Do you have trouble with day-to-day activities such as bathing, preparing meals, shopping, managing finances, etc.?: No Are you currently unemployed and looking for a job?: No Are you interested in more education?: Yes Please select the resources that you would like help with: None Currently or been in a relationship where the following occur: No concerns reported THRIVE Score: 0 AUDIT C Alcohol Use Questionnaire (AUDIT-C) 1. How often do you have a drink containing alcohol?: 2-3 times a week 2. How many drinks containing alcohol do you have on a typical day when you are drinking?: 1 or 2 3. How often do you have six or more drinks on one occasion?: Never Total Score: 3 MARCUS-7 AMB Questionnaire MARCUS-7 Date MARCUS - 7 assessed: 11/26/24 Feeling nervous, anxious, or on edge: 0 = Not at all Not being able to stop or control worryin = Not at all Worrying too much about different things: 0 = Not at all Trouble relaxin = Not at all Being so restless that it is hard to sit still: 0 = Not at all Becoming easily annoyed or irritable: 1 = Several days Feeling afraid as if something awful might happen: 0 = Not at all Total MARCUS-7 score (0-4 normal; 5-9 mild; 10-14 moderate; 15-21 severe): 1 Source: Developed by Drs. Matthew Heaton, Jessica Carolina, Tj Berkowitz and colleagues, with an educational kevin from [employer]. Physical exam (Primary Care) Vital Signs: Last Vital Signs Pulse 78 11/26/24 10:33 BP 132/92 H 11/26/24 10:33 Pulse Ox 97 11/26/24 10:33 Oxygen Delivery Method Room Air 11/26/24 10:33 BMI result Body Mass Index 33.2 Tobacco/Smoking Status: Tobacco use Status Tobacco use date assessed 11/26/24 11/26/24 10:38 Patient Tobacco Use Status Former Tobacco user 11/26/24 10:38 Tobacco use type Cigar 11/26/24 10:38 e-Cigarette/Vaping Use Never Used 11/26/24 10:38 PHQ-9: PHQ-9 Score PHQ-9: Total score 0 11/26/24 10:47 Depression Screening Interpretation: Negative Thrive Assessment: Date of Thrive Assessment Date Thrive assessed 11/20/24 11/26/24 10:38 Currently or been in a relationship where the following occur: No concerns reported Coding Level of Care Code Est Pt Level 3 (00693) Diagnoses HTN (hypertension) I10 Screening for prostate cancer Z12.5 Additional Codes PHQ-9 - 34836 - PHQ-9 Billing: Yes ([id number]) Assessment & Plan Assessment & Plan (1) HTN (hypertension): Code(s): I10 - Essential (primary) hypertension Category: Medical (2) Screening for prostate cancer: Code(s): Z12.5 - Encounter for screening for malignant neoplasm of prostate Category: Medical Plan . Orders: Orders Comprehensive [place]. Panel Fast Today I10 - Essential (primary) hypertension TSH reflex Free T4 Today I10 - Essential (primary) hypertension UA CC w/rflx Micro + Cult Today I10 - Essential (primary) hypertension Complete Blood Count Auto Diff Today I10 - Essential (primary) hypertension Lipid Panel Today I10 - Essential (primary) hypertension Prostate Specific Antigen Scr Today Z12.5 - Encounter for screening for malignant neoplasm of prostate Medications: New hydrochlorothiazide 12.5 mg PO DAILY 30 tabs 2RF
--- OUTSIDE RECORDS SUMMARY | 2024-11-26 11:54 | XMS_ITS | Patient Health Record ---
Author Organization [facility] Address [address] [place] [address] Care Team Providers Care Fuel House Attendant Name Role Phone LEONA CHRISTY Primary Care Provider Matthew Barillas [phone] Allergies No Known Allergies Results Component Value Reference Range Notes Prothrombin Time INR Reviewed date:10/30/2024 07:07:39 PM Interpretation: Performing Lab:[address] [address] Notes/Report: Prothrombin Time 10.2 10.9-12.4 SEC INTERNATIONAL [...] Creatinine Reviewed date:11/01/2024 07:20:17 PM Interpretation: Performing Lab:[address] [address] Notes/Report: Creatinine 0.77 0.5-1.4 mg/dL Estimated Glomerular Filt Rate > 60 Chronic Kidney Disease: Estimated GFR < 60 mL/min/1.73m2 Severe Kidney Disease: Estimated GFR < 15 mL/min/1.73m2 Ferritin Reviewed date:11/01/2024 07:20:26 PM Interpretation: Performing Lab:[address] [address] Notes/Report: Ferritin 63 20-250 ng/mL Alpha 1 Anti-trypsin Reviewed date:11/07/2024 10:49:44 PM Interpretation: Performing Lab:[facility], [address] [place] [phone] Notes/Report: Alpha 1 Anti-trypsin 138 83-199 mg/dL THIS TEST WAS PERFORMED AT: [facility] [address] [address] GEOVANNI MCGEE MD Liver Fibrosis Pnl Reviewed date:11/07/2024 10:48:45 PM Interpretation: Performing Lab:[facility], [address] [place] [phone] Notes/Report: Liver Fibrosis Score 0.20 Liver Fibrosis [...] a>0.62 and a<=1.00 : A3 (severe activity) YNE-Meomw-5-Macroglobuli n 153 106-279 mg/dL FIB-Haptoglobin 106 43-212 mg/dL FIB-Apolipoprotein A1 170 94-176 mg/dL FIB-Total Bilirubin 0.4 0.2-1.2 mg/dL FIB-GGT 62 3-70 U/L FIB-ALT 32 9-46 U/L Reference ID [id number] Footnote SEE NOTE The reliability of results is dependent on compliance with the preanalytical and analytical conditions recommended by [employer]. The tests have to be deferred for: [...] The performance characteristics have been determined by [facility]. It has not been cleared or approved by the U.S. Food and Drug Administration. Performance characteristics refer to the analytical performance of the test. Mer[employer], the associated logo, MeeWee and all associated [employer] medellin are the registered trademarks of [employer]. All third green party medellin - (R) and (TM) - are the property of their respective owners. (C) 1482-4962 [employer]. All rights reserved. THIS TEST WAS PERFORMED AT: [facility] [place] [address] [place] [address] JENNI LYON MD,PHD,BEV SAVANAH Reflex Titer and Pattern (Not yet reviewed by provider) Interpretation: Performing Lab:[facility], [address] [place] [phone] Notes/Report: Anti Nuclear Antibody Screen POSITIVE NEGATIVE SAVANAH IFA is a first line screen for detecting the presence of up to approximately 150 autoantibodies in various autoimmune diseases. A positive SAVANAH IFA result is suggestive of autoimmune disease and reflexes to titer and pattern. Further laboratory testing may be considered if clinically indicated. For additional information, please refer to http://education.Intent Media/faq/FAQ1 77 (This link is being provided for [...] Nucleolar International Consensus on SAVANAH Patterns (https://doi.org/10151 5/otri-2045-3485) SAVANAH Titer 2 1:80 A low level SAVANAH titer may be present in pre-clinical autoimmune diseases and normal individuals. Reference Range <1:40 Negative 1:40-1:80 Low Antibody Level >1:80 Elevated Antibody Level SAVANAH Pattern 2 Nuclear, Homogeneous Homogeneous pattern is associated with systemic lupus erythematosus (SLE), drug-induced lupus and juvenile idiopathic arthritis. AC-1: Homogeneous International Consensus on SAVANAH Patterns (https://doi.org/10151 5yrfq-3677-5799) SAVANAH Titer 3 1:80 A low level [...] Speckled International Consensus on SAVANAH Patterns (https://doi.org/10151 5nniw-0957-3057) THIS TEST WAS PERFORMED AT: [facility] [address] [place] [phone] GEOVANNI MCGEE MD Mitochondrial Antibody Reviewed date:11/05/2024 11:13:27 AM Interpretation: Performing Lab:[facility], [address] [place] [phone] Notes/Report: Mitochondrial Antibodies NEGATIVE NEGATIVE The specimen was negative for cytoplasmic antibodies, however additional staining was observed suggesting the presence of Antinuclear Antibodies. Consider requesting order code 249, SAVANAH Screen, IFA with Reflex to Titer and Pattern, or order code [id number], SAVANAH Screen, IFA w/reflex Titer/Pattern, and Reflex to Multiplex 11 Ab Whitley, if clinically indicated. THIS TEST WAS PERFORMED AT: [facility] [address] [address] GEOVANNI MCGEE MD Mitochondrial Ab Titer TNP Smooth Muscle Antibody Reviewed date:11/05/2024 11:13:35 AM Interpretation: Performing Lab:[address] [address] Notes/Report: Smooth Muscle Antibody <20 <20 U [...] type 1. THIS TEST WAS PERFORMED AT: [facility]/[address] [address] ERIKA DUARTE MD,PHD Hepatitis B,C Profile Reviewed date:11/01/2024 07:21:19 PM Interpretation: Performing Lab:[facility], [address] [place] [phone] Notes/Report: Hepatitis B Surface Antibody REACTIVE Nonreactive REACTIVE: > 11.99 mIU/mL Hepatitis B Core Antibody Nonreactive Nonreactive Hepatitis C Antibody Nonreactive Nonreactive Antibodies to HCV not detected; does not exclude early acute HCV infection. Hepatitis B Surface Antigen Negative Negative Hemoglobin A1c Reviewed date:11/05/2024 11:38:48 AM Interpretation: Performing Lab:[facility], [address] [place] [phone] Notes/Report: Hemoglobin A1c % 7.0 <6.0 % [...] average glucose, using the formula of the Q8Z-Ijebmrn Average Glucose study (ADAG), Diabetes Care, Vol.31,#8, 2007 Pathology Reviewed date:11/05/2024 11:38:25 AM Interpretation: Performing Lab:[facility], [address] [place] [phone] Notes/Report: Complete Blood Count Auto Di ff Reviewed date:11/01/2024 07:20:05 PM Interpretation: Performing Lab:[facility], [address] [place] [phone] Notes/Report: White Blood Count 6.0 4.8-10.8 X10*3/uL [...] Panel Reviewed date:11/01/2024 07:17:43 PM Interpretation: Performing Lab:[address] [address] Notes/Report: Bilirubin Total 0.3 0.0-1.0 mg/dL Bilirubin Direct 0.1 0.0-0.5 mg/dL Aspartate Amino Transferase 30 5-37 U/L Alanine Aminotransferase 47 0-40 U/L Total Protein 7.2 6.5-8.0 g/dL Albumin Level 4.7 3.5-5.0 g/dL Alkaline Phosphatase 68 39-117 U/L Blood Urea Nitrogen Reviewed date:11/01/2024 07:17:34 PM Interpretation: Performing Lab:[facility], [address] [place] [phone] Notes/Report: Blood Urea Nitrogen 12 9-16 mg/dL IRON PROFILE Reviewed date:11/01/2024 07:17:19 PM Interpretation: Performing Lab:[facility], [address] [place] [phone] Notes/Report: Iron 81 45-160 mcg/dL Total Iron Binding Capacity 292 228-428 mcg/dL Percent Iron Saturation 28 15-50 % Unsaturated Iron Binding 211 Carcinoembryonic Antigen Reviewed date:11/01/2024 07:17:08 PM Interpretation: Performing Lab:[address] [address] Notes/Report: Carcinoembryonic Antigen < 1.73 CEA Reference [...] 19-9 Reviewed date:11/07/2024 10:48:24 PM Interpretation: Performing Lab:[address] [address] Notes/Report: Carbohydrate Antigen 19-9 16 <34 U/mL This test was performed using the Siemens chemiluminescent method. Values obtained from different assay methods cannot be used interchangeably. CA 19-9 levels, regardless of value, should not be interpreted as absolute evidence of the presence or absence of disease. THIS TEST WAS PERFORMED AT: [facility] [address] [place] [phone] GEOVANNI MCGEE MD Alpha Fetoprotein Reviewed date:11/07/2024 10:48:11 PM Interpretation: Performing Lab:[address] [address] Notes/Report: Alpha Fetoprotein 5.1 <6.1 ng/mL This test was performed using the [employer] chemiluminescent method. Values obtained from different assay methods cannot be used interchangeably. AFP levels, regardless of value, should not be interpreted as absolute evidence of the presence or absence of disease. THIS TEST WAS PERFORMED AT: [facility] [address] [place] [phone] GEOVANNI MCGEE MD MR abdomen wo/w con (Not yet reviewed by provider) Interpretation: Performing Lab: Notes/Report: [address] [address] Magnetic Resonance Report Signed Patient: Gemini Diaz MR#: [id number] : 1960 Acct:[id number] Age/Sex: 64 / M ADM Date: 11/20/24 Loc: HO.MRI Attending Dr: Matthew West MD Ordering Physician: Matthew West MD Date of Service: 11/20/24 Procedure(s): MR abdomen wo/w con Accession Number(s): [id number] cc: Leona Christy [facility]-; Matthew West MD EXAMINATION: MR ABDOMEN WITHOUT THEN WITH IV CONTRAST HISTORY: ABN MR LIVER, ELEVATED LFTS, WITH EOVIST COMPARISON: Comparison is made with the prior examination dated 02/27/2024. TECHNIQUE: Axial in and out of phase T1-weighted gradient echo, axial diffusion weighted, and axial and coronal HASTE T2 with fat saturation images were obtained through the abdomen. Subsequently, fat suppressed axial and coronal T1-weighted images were obtained after the intravenous administration of 10 mL Eovist. FINDINGS: Liver: There is marked loss of signal intensity in the liver on opposed phase imaging, consistent with steatosis. There is a 1.2 cm T2 hyperintense, T1 hypointense lesion in segment V which demonstrates peripheral nodular enhancement and fill-in over time consistent with a hemangioma. No retention of contrast is seen on 20 minute delayed images. In segment IV, there are 2 areas of interest measuring 2.3 and 1.6 cm in size. These are hypointense on T2-weighted images and hyperintense on precontrast T1-weighted images. These areas become more prominent on out of phase imaging and fat-suppressed images. On subtraction images, no definite enhancement is seen. Findings are most compatible with areas of focal fatty sparing. The hepatic and portal veins are patent. There is no intrahepatic biliary dilatation. Gallbladder/biliary tree: No gallstones are identified. The common bile duct is normal in caliber. No intraluminal filling defects are identified to suggest choledocholithiasis. Spleen: The spleen is unremarkable. Pancreas: Again seen is a 1.1 cm cystic focus in the body of the pancreas without abnormal enhancement. There is no enhancing pancreatic mass. The pancreatic duct is normal in caliber. Adrenals: The adrenal glands are unremarkable. Kidneys: The kidneys are unremarkable. There is no hydronephrosis. Lymph nodes: There is no retroperitoneal lymphadenopathy in the upper abdomen. Fluid: There is no ascites in the upper abdomen. Visualized bowel: The visualized small and large bowel loops are unremarkable in appearance. Visualized bones: The visualized bones demonstrate normal marrow signal intensity. MR/MR abdomen wo/w con IMPRESSION: 1. Hepatic steatosis. Findings consistent with a 1.2 cm hepatic hemangioma segment V. Areas of interest in segment IV likely represent areas of focal fatty sparing as described. 2. 1.1 cm cystic focus in the body of the pancreas. Follow-up is recommended. Electronically signed by: Matthew Choi MD 11/23/2024 07:25 AM EDT Dictated By: Matthew Choi MD Signed By: <Electronically signed by Matthew Choi MD in OV> 11/23/24 0725 DD/ 1440 TD/TT: 11/20/24 1620 Baseball Hand Sewer: Reason For Referral No Information Medications Medication [...] Problem Screening for malignant neoplasm of colon (244563633) Encounter for screening for malignant neoplasm of colon (Z12.11) Active confirmed Problem Dysphagia (10569333) Dysphagia (R13.10) Active confirmed Problem Gastroesophageal reflux disease (968601670) Gastroesophageal reflux disease (K21.9) Active confirmed Problem Elevated liver enzymes level (526106529) Elevated liver function tests (R79.89) Active confirmed Problem Preprocedural examination (362986706057078) Preprocedural examination (Z01.818) Active confirmed Problem Pancreatic cyst (50074230) Pancreatic cyst (K86.2) Active confirmed Problem Lesion of liver (573037002) Liver lesion (K76.9) Active confirmed Problem Abnormal findings diagnostic imaging of liver and biliary tract (121275577) Abnormal MRI, liver (R93.2) Active confirmed Problem Cyst and pseudocyst of pancreas (751537206) Pancreas cyst (K86.2) Active confirmed Problem Gastroesophageal reflux disease (disorder) (633460295) Chronic GERD (K21.9) Active confirmed Vital Signs Temperature 98.0 degrees Fahrenheit 10/30/2024 Blood pressure diastolic 01 mm Hg 10/30/2024 Height 68 in 10/30/2024 Blood pressure systolic 001 mm Hg 10/30/2024 Weight 217.8 lbs 10/30/2024 BMI 33.11 kg/m2 10/30/2024 Encounters Encounter Location Date Provider Diagnosis [facility] Out[facility] [address] [place] [phone] 03/18/2024 Matthew West Hiatal hernia K44.9 ; Gastroesophageal reflux disease K21.9 and Dysphagia R13.10 [facility] [address] [place] [phone] 01/17/2024 Matthew West Chronic GERD K21.9 a nd Dysphagia R13.10 [facility] [address] [place] [phone] 10/30/2024 Matthew West Abnormal MRI, liver R93.2 ; Elevated liver function tests R79.89 and Pancreas cyst K86.2 [facility] [address] [place] [phone] 12/25/2023 Matthew West [facility] [address] [place] [phone] 08/26/2024 Matthew West Pancreatic cyst K86. 2 and Liver lesion K76.9 Assessments Encounter Date Diagnosis (ICD Code) Assessment Notes Treatment Notes Treatment Clinical Notes Section Notes 03/18/2024 Gastroesophageal reflux disease (ICD-10 - K21.9) 03/18/2024 Hiatal hernia (ICD-10 - K44.9) 01/17/2024 Dysphagia (ICD-10 - R13.10) Overall, Nmeesio appears quite well. We did review that [...] 2020. Given the fact that the polyp automatic glove turner and former to be non-adenomatous and only inflammatory in [...] 2020. Given the fact that the polyp automatic glove turner and former to be non-adenomatous and only inflammatory in [...] w DIFF 10/30/2024 ALPHA-FETOPROTEIN,TUMOR MARKER ALPHA-FETOPROTEIN,TUMOR MARKER 5 CA 19-9 10/30/2024 CA 19-9 08/26/2024 MRI ABD W&WO CONTRAST 10/30/2024 SAVANAH Reflex Titer and Pattern 10/30/2024 MR abdomen wo/w con 11/20/2024 Future Test Test Name Order Date COLONOSCOPY 05/26/2020 UPPER GI ENDOSCOPY BALLOOON DILATION OF ESOPH 01/17/2024 Next Appt Details Provider Name:Matthew Morrison Jenna , 11/05/2025 01:00:00 PM, [address] [place] [address], [address], [place], [address], Insurance Providers Payer Name Payer Address Payer Phone Subscriber Number Group Number Insured Name Patient Relationship to Insured Coverage Start Date Coverage End Date [employer] [address] [address] [place] [address] [id number] GEMINI DIAZ Self - patient is the insured Medical (General) History Medical History History ICD Code 2019 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
--- OUTSIDE RECORDS SUMMARY | 2024-11-26 11:54 | XMS_ITS | Clinical Summary ---
Author Organization [facility] Address [address] [place] [address] Care Team Providers Care Microsystems Engineer Name Role Phone Unavailable Primary Care Provider [...]
== END 2024-11-26 11:36 | disposition home or self-care (01) ==
LOC: HO.HMCC 10:24
PROVIDERS: PCP Nurse Practitioner Family; Visit Provider Nurse Practitioner Family
DX: I10 Essential (primary) hypertension (principal); Z12.5 Encounter for screening for malignant neoplasm of prostate

== ENCOUNTER → 2024-11-26 10:23 | Outpatient (BNVA) | payer OTHER, SELFPAY | PROVIDERS: PCP Nurse Practitioner Family; Visit Provider Nurse Practitioner Family | DX: I10 Essential (primary) hypertension (principal); Z86.73 Personal history of transient ischemic attack (TIA), and cerebral infarction without residual deficits | CPT/HCPCS: 96127 ==